=== PATIENT | female | born 1975 | race Caucasian/White ===

== ENCOUNTER → 2016-11-08 | Outpatient (REF) | payer OTHER ==
[~2016-11-08] MED LIST: OXYC-517 PO
== END ==
LOC: M SFHCCLAY 11:48
PROVIDERS: ATTEND Family Medicine
DX: R68.89 Other general symptoms and signs (principal)

== ENCOUNTER 2016-12-08 19:03 | Emergency (ER) | payer OTHER ==
[~2016-12-08] VITALS: Ht 160 cm; Wt 97.5 kg
[~2016-12-08 19:03] MED LIST changes: -ALEV220T22 PO; -ETOD500T PO; -MEDR4PAK PO; -NEXI40GR PO; -ZYRT10TA2 PO
[2016-12-08] MEDS ORDERED: ETOD500T PO (19:16)
[2016-12-08] MEDS ORDERED: NEXI40GR PO (19:16)
[2016-12-08] MEDS ORDERED: ALEV220T22 PO (19:16)
[2016-12-08] MEDS ORDERED: ZYRT10TA2 PO (19:16)
[2016-12-08] MEDS ORDERED: methylPREDNISolone INJ 125 MG/2 ML VIAL (J2930) IV ONE (20:00)
[2016-12-08] MEDS ORDERED: FAMOTIDINE IV BAG 20 MG in APPROPRIATE DILUENT 1 EA IV ONE (20:00)
[2016-12-08] MEDS ORDERED: diphenhydrAMINE INJ 50MG/ML VIAL (J1200) IV ONE (20:00)
[2016-12-08] MEDS ORDERED: ALBUTEROL SULFATE 2.5 MG/0.5 ML INH NEB SOLN NEB ONE (20:00)
[2016-12-08] MEDS ORDERED: MEDR4PAK PO (22:06)
[2016-12-08 22:11] VITALS: BP 109/71
== END 2016-12-08 22:13 | disposition home or self-care (01) ==
LOC: M ED 19:52
DX: T78.40XA Allergy, unspecified, initial encounter (principal); R10.824 Left lower quadrant rebound abdominal tenderness; Z90.49 Acquired absence of other specified parts of digestive tract; Z79.899 Other long term (current) drug therapy; Z88.1 Allergy status to other antibiotic agents; Z91.040 Latex allergy status
CPT/HCPCS: 36415; 76830; 76856; 80053; 85025; 93041; 93976; 94640; 94760; 96374; 96375; 99284; J1200; J2930

== ENCOUNTER → 2016-12-08 | Outpatient (CLI) | payer OTHER ==
[~2016-12-08] MED LIST changes: +ALEV220T22 PO; +ETOD500T PO; +MEDR4PAK PO; +NEXI40GR PO; +ZYRT10TA2 PO
--- NOTE | 2016-12-08 14:44 | REP ---
PELVIC ULTRASOUND: Real-time sonographic evaluation of the pelvis performed utilizing transabdominal and endovaginal technique. Bladder measures 8.5 x 3.8 x 7.1 cm. Uterus measures 8.0 x 3.9 x 5.7 cm. Endometrial stripe measures 13 mm with no endometrial fluid collection. Right ovary measures 2.7 x 2.1 x 1.8 cm and left ovary 3.4 x 2.3 x 2.3 cm. There is a dominant follicle in the left ovary 1.2 x 1.7 x 1.2 cm. There is no other evidence of adnexal mass. There is no free fluid. There is no evidence of ovarian torsion with blood flow seen in each ovary with duplex Doppler evaluation. IMPRESSION: Dominant follicle left ovary 1.7 cm in maximum diameter. No other evidence of adnexal mass. No free fluid or torsion. Signed by Jayy Cortez MD 12/08/2016 05:03 P
== END ==
LOC: M RAD 13:31
PROVIDERS: ATTEND Family Medicine
DX: N83.02 Follicular cyst of left ovary (principal)

== ENCOUNTER → 2016-12-08 | Outpatient (REF) | payer OTHER ==
[2016-12-08 20:04] LABS: ALBUMIN 4.2 GM/DL (3.2-5.2); ALBUMIN/GLOBULIN RATIO 1.11 (1.00-1.93); ALKALINE PHOSPHATASE 108 U/L (45-117); ALT/SGPT 31 U/L (12-78); ANION GAP 10 MEQ/L (8-16); AST/SGOT 16 U/L (15-37); BILIRUBIN,TOTAL 0.4 MG/DL (0.2-1.0); BLOOD UREA NITROGEN 21 MG/DL (7-18); CALCIUM LEVEL 8.4 MG/DL (8.5-10.1); CARBON DIOXIDE LEVEL 28 MEQ/L (21-32); CHLORIDE LEVEL 103 MEQ/L (98-107); CREATININE FOR GFR 0.77 MG/DL (0.55-1.02); GLOMERULAR FILTRATION RATE > 60.0 (>60); GLUCOSE, FASTING 91 MG/DL (70-105); SODIUM LEVEL 141 MEQ/L (136-145)
[2016-12-08 20:12] LABS: BASO % 0.6 % (0.0-1.0); EOS # 0.1 K/mm3 (0.0-0.50); EOS % 1.9 % (0.0-3.0); LARGE UNSTAINED CELL # 0.1 K/mm3 (0.0-0.4); LARGE UNSTAINED CELL % 1.6 % (0.0-4.0); LYMPH % 28.2 % (24.0-44.0); MEAN CORPUSCULAR HEMOGLOBIN 28.9 pg (27.0-33.0); MEAN CORPUSCULAR HGB CONC 33.5 g/dl (32.0-36.5); MEAN CORPUSCULAR VOLUME 86.2 fl (80.0-96.0); MONO # 0.3 K/mm3 (0.0-0.8); MONO % 3.9 % (0.0-5.0); NEUTROPHILS # 4.5 K/mm3 (1.8-7.7); NEUTROPHILS % 63.8 % (36.0-66.0); PLATELET COUNT, AUTOMATED 331 k/mm3 (150-450); RED CELL DISTRIBUTION WIDTH 12.1 % (11.5-14.5)
== END ==
LOC: M SFHCCLAY 11:52
PROVIDERS: ATTEND Family Medicine
DX: R10.824 Left lower quadrant rebound abdominal tenderness (principal)

== ENCOUNTER 2017-06-24 15:50 | Emergency (ER) | payer OTHER ==
[~2017-06-24] VITALS: Ht 160 cm; Wt 100.0 kg
[~2017-06-24 15:50] MED LIST changes: +ALEV220T22 PO; +ETOD500T PO; +MEDR4PAK PO; +NEXI40GR PO; +ZYRT10TA2 PO
[2017-06-24] MEDS ORDERED: CONC36TA4 (15:55)
[2017-06-24] MEDS: MORPHINE 4 MG/ML 1ML SYRINGE IV PRN ×2 (16:13→17:23)
[2017-06-24] MEDS ORDERED: ONDANSETRON 4MG/2ML VIAL (J2405) IV ONE (16:15)
[2017-06-24] MEDS ORDERED: NS 1,000 ML IV ONE (16:15)
[2017-06-24] MEDS ORDERED: KETOROLAC 30 MG/ML VIAL (J1885) IV ONE (16:15)
[2017-06-24 16:40] LABS: BASO % 0.3 % (0.0-1.0); EOS # 0.1 K/mm3 (0.0-0.50); EOS % 1.3 % (0.0-3.0); LARGE UNSTAINED CELL # 0.1 K/mm3 (0.0-0.4); LARGE UNSTAINED CELL % 0.9 % (0.0-4.0); LYMPH # 2.2 K/mm3 (1.5-4.5); LYMPH % 21.5 % (24.0-44.0); MEAN CORPUSCULAR HEMOGLOBIN 29.9 pg (27.0-33.0); MEAN CORPUSCULAR HGB CONC 35.2 g/dl (32.0-36.5); MEAN CORPUSCULAR VOLUME 85.1 fl (80.0-96.0); MONO # 0.4 K/mm3 (0.0-0.8); MONO % 3.6 % (0.0-5.0); NEUTROPHILS # 7.3 K/mm3 (1.8-7.7); NEUTROPHILS % 72.3 % (36.0-66.0); PLATELET COUNT, AUTOMATED 331 k/mm3 (150-450); RED CELL DISTRIBUTION WIDTH 12.2 % (11.5-14.5)
[2017-06-24 16:41] LABS: ALBUMIN 4.1 GM/DL (3.2-5.2); ALBUMIN/GLOBULIN RATIO 0.95 (1.00-1.93); ALKALINE PHOSPHATASE 104 U/L (45-117); ALT/SGPT 26 U/L (12-78); ANION GAP 6 MEQ/L (8-16); AST/SGOT 14 U/L (15-37); BILIRUBIN,DIRECT < 0.1 MG/DL (0.0-0.2); BILIRUBIN,TOTAL 0.4 MG/DL (0.2-1.0); BLOOD UREA NITROGEN 16 MG/DL (7-18); CALCIUM LEVEL 9.1 MG/DL (8.5-10.1); CARBON DIOXIDE LEVEL 28 MEQ/L (21-32); CHLORIDE LEVEL 106 MEQ/L (98-107); CREATININE FOR GFR 0.93 MG/DL (0.55-1.02); GLOMERULAR FILTRATION RATE > 60.0 (>60); GLUCOSE, FASTING 109 MG/DL (70-105); POTASSIUM SERUM 3.4 MEQ/L (3.5-5.1); SODIUM LEVEL 140 MEQ/L (136-145); TOTAL PROTEIN 8.4 GM/DL (6.4-8.2)
[2017-06-24] MEDS ORDERED: MORPHINE 4 MG/ML 1ML SYRINGE IV ONE (17:30)
[2017-06-24 17:51] VITALS: BP 160/85
[2017-06-24] MEDS ORDERED: PANTOPRAZOLE 40MG INJ (PROTONIX) (C9113) IV ONE (18:00)
[2017-06-24] MEDS ORDERED: FLOM5CAP PO (18:04)
[2017-06-24] MEDS ORDERED: NORCOTAB PO (18:04)
[2017-06-24] MEDS ORDERED: ZOFR4TAB3 PO (18:04)
[2017-06-24] MEDS ORDERED: ONDANSETRON 4 MG ORAL DISINTEGRATING TAB (S0181) PO ONE (18:15)
[2017-06-24] MEDS ORDERED: NORCO 5/325MG TABLET (BULK FOR ED) PO ONE (18:15)
[2017-06-24] MEDS ORDERED: TAMSULOSIN 0.4 MG CAP PO ONE (18:15)
--- NOTE | 2017-06-25 06:46 | REP ---
CT ABDOMEN AND PELVIS WITHOUT CONTRAST: CT abdomen and pelvis performed without oral or IV contrast. Sagittal and coronal reconstruction images are performed. The visualized lung bases demonstrate no evidence of acute infiltrate. The liver is grossly unremarkable. The patient appears to have had a cholecystectomy. The spleen, adrenals and pancreas are grossly unremarkable. There are approximately three or four tiny scattered right intrarenal calculi. There are approximately five scattered left intrarenal calculi. There is a 5 mm calculus in the proximal left ureter causing mild left hydronephrosis. The urinary bladder is collapsed. There is no abdominal aortic aneurysm. There is no adenopathy. There is no free air or free fluid. There is no bowel wall thickening. There is no evidence of a pelvic mass. IMPRESSION: There is a 5 mm calculus in the proximal left ureter causing mild left hydronephrosis. There are subcentimeter bilateral intrarenal calculi. Signed by Jayy Cortez MD 06/25/2017 05:25 P
--- NOTE | 2017-06-25 08:34 | ECGEPIP ---
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
== END 2017-06-24 18:25 | disposition home or self-care (01) ==
LOC: M ED 15:50
DX: N13.2 Hydronephrosis with renal and ureteral calculous obstruction (principal); Z79.899 Other long term (current) drug therapy; Z88.1 Allergy status to other antibiotic agents; Z91.040 Latex allergy status; Z87.442 Personal history of urinary calculi; Z98.890 Other specified postprocedural states
CPT/HCPCS: 74176; 80048; 80076; 81001; 83690; 85025; 93005; 96374; 96375; 96376; 99283; C9113; J1885; J2405

== ENCOUNTER → 2017-06-26 | Outpatient (REF) | payer OTHER ==
[~2017-06-26] MED LIST changes: +CONC36TA4; +FLOM5CAP PO; +NORCOTAB PO; +ZOFR4TAB3 PO
== END ==
LOC: M SFHCCAPE 10:59
PROVIDERS: ATTEND Physician Assistant
DX: N20.0 Calculus of kidney (principal)

== ENCOUNTER → 2017-08-21 | Outpatient (REF) | payer OTHER ==
[2017-08-21 19:41] LABS: BASO % 0.7 % (0.0-1.0); EOS # 0.1 10^3/uL (0.0-0.50); EOS % 1.2 % (0.0-3.0); IMMATURE GRANULOCYTE % 0.5 % (0-0); LYMPH # 2.2 10^3/uL (1.5-4.5); LYMPH % 36.5 % (24.0-44.0); MEAN CORPUSCULAR HEMOGLOBIN 28.8 pg (27.0-33.0); MEAN CORPUSCULAR HGB CONC 33.7 g/dl (32.0-36.5); MEAN CORPUSCULAR VOLUME 85.3 fl (80.0-96.0); MONO # 0.3 10^3/uL (0.0-0.8); MONO % 5.3 % (0.0-5.0); NEUTROPHILS # 3.4 10^3/uL (1.8-7.7); NEUTROPHILS % 55.8 % (36.0-66.0); PLATELET COUNT, AUTOMATED 333 10^3/uL (150-450); RED CELL DISTRIBUTION WIDTH 12.9 % (11.5-14.5); WHITE BLOOD COUNT 6.1 10^3/uL (4.0-10.0)
[2017-08-21 20:30] LABS: ALBUMIN 3.9 GM/DL (3.2-5.2); ALBUMIN/GLOBULIN RATIO 1.03 (1.00-1.93); ALKALINE PHOSPHATASE 93 U/L (45-117); ALT/SGPT 38 U/L (12-78); ANION GAP 8 MEQ/L (8-16); AST/SGOT 22 U/L (7-37); BILIRUBIN,TOTAL 0.5 MG/DL (0.2-1.0); BLOOD UREA NITROGEN 13 MG/DL (7-18); CALCIUM LEVEL 8.6 MG/DL (8.5-10.1); CARBON DIOXIDE LEVEL 28 MEQ/L (21-32); CHLORIDE LEVEL 105 MEQ/L (98-107); CHOLESTEROL LEVEL 156 MG/DL (<200); CREATININE FOR GFR 0.76 MG/DL (0.55-1.02); FREE T4 1.04 NG/DL (0.76-1.46); GLOMERULAR FILTRATION RATE > 60.0 (>60); GLUCOSE, FASTING 89 MG/DL (70-105); POTASSIUM SERUM 3.7 MEQ/L (3.5-5.1); SODIUM LEVEL 141 MEQ/L (136-145); TOTAL PROTEIN 7.7 GM/DL (6.4-8.2); TRIGLYCERIDES LEVEL 111 MG/DL (<150)
== END ==
LOC: M SFHCCAPE 08:40
PROVIDERS: ATTEND Physician Assistant
DX: E66.09 Other obesity due to excess calories (principal); Z68.37 Body mass index [BMI] 37.0-37.9, adult; F41.9 Anxiety disorder, unspecified

== ENCOUNTER → 2017-08-22 | Outpatient (REF) | payer OTHER | LOC: M SFHCCAPE 10:56 | PROVIDERS: ATTEND Physician Assistant | DX: R30.0 Dysuria (principal) ==

== ENCOUNTER 2017-10-05 14:17 | Emergency (ER) | payer OTHER ==
[2017-10-05] MEDS: ACETAMINOPHEN 325 MG TAB PO (15:38)
== END 2017-10-05 16:53 | disposition home or self-care (01) ==
LOC: M ED 14:17
DX: F07.81 Postconcussional syndrome (principal); W19.XXXA Unspecified fall, initial encounter; Y92.009 Unspecified place in unspecified non-institutional (private) residence as the place of occurrence of the external cause; Y93.89 Activity, other specified; Y99.8 Other external cause status; Z79.899 Other long term (current) drug therapy; Z88.1 Allergy status to other antibiotic agents; Z91.040 Latex allergy status
CPT/HCPCS: 70450

== ENCOUNTER 2017-10-09 12:34 | Emergency (ER) | payer OTHER ==
[2017-10-09] MEDS: NS 1,000 ML IV (15:55)
[2017-10-09] MEDS: diphenhydrAMINE INJ 50MG/ML VIAL (J1200) IV (15:55)
[2017-10-09] MEDS: KETOROLAC 30 MG/ML VIAL (J1885) IV (15:55)
[2017-10-09] MEDS: METOCLOPRAMIDE INJ 10MG/2ML VIAL (J2765) IV (15:56)
== END 2017-10-09 17:24 | disposition home or self-care (01) ==
LOC: M ED 12:34
DX: G44.309 Post-traumatic headache, unspecified, not intractable (principal); W00.9XXA Unspecified fall due to ice and snow, initial encounter; Y92.89 Other specified places as the place of occurrence of the external cause; Y93.89 Activity, other specified; Y99.8 Other external cause status; F33.9 Major depressive disorder, recurrent, unspecified; Z79.899 Other long term (current) drug therapy; Z88.1 Allergy status to other antibiotic agents; Z91.040 Latex allergy status; Z87.442 Personal history of urinary calculi
CPT/HCPCS: J1200

== ENCOUNTER 2017-10-25 20:22 | Emergency (ER) | payer OTHER | END 2017-10-25 22:37 | disposition left against medical advice (07) | LOC: M ED 20:22 | DX: Z53.21 Procedure and treatment not carried out due to patient leaving prior to being seen by health care provider (principal) ==

== ENCOUNTER → 2018-10-23 | Outpatient (REF) | payer OTHER ==
[~2018-10-23] MED LIST changes: +CYCL10TA PO; +FLOM0.4C39 PO; -FLOM5CAP PO; +IBUP80TA PO; +LIDO4CRE4 TOP; +PANT40TA3 PO; +TRAM50TA2 PO; +VYVA50CA4; +ZOFR4TAB14 PO; -ZOFR4TAB3 PO; +ZYRT10CA5 PO; -ZYRT10TA2 PO
[2018-10-23 18:20] LABS: AMORPHOUS SEDIMENT SMALL (NEGATIVE); APPEARANCE, URINE TURBID (CLEAR); BACTERIA, URINE AUTO 1+ (NEGATIVE); BILIRUBIN, URINE AUTO NEGATIVE (NEGATIVE); BLOOD, URINE BLOOD NEGATIVE (NEGATIVE); CALCIUM OXALATE CRYSTALS LARGE; COLOR, URINE AMBER (YELLOW); GLUCOSE, URINE (UA) AUTO NEGATIVE (NEGATIVE); KETONE, URINE AUTO NEGATIVE (NEGATIVE); LEUKOCYTE ESTERASE, URINE AUTO 2+ (NEGATIVE); MUCUS, URINE SMALL (NEGATIVE); NITRITE, URINE AUTO NEGATIVE (NEGATIVE); PROTEIN, URINE AUTO 1+ mg/dL (NEGATIVE); RBC, URINE AUTO 1 /HPF (0-3); SPECIFIC GRAVITY URINE AUTO 1.025 (1.002-1.035); SQUAMOUS EPITHELIAL CELL UR AU 11 /HPF (0-6); UROBILINOGEN, URINE AUTO 0.2 mg/dL (0.0-2.0); WBC, URINE AUTO 11 /HPF (0-3)
== END ==
LOC: M SFHCCAPE 10:47
PROVIDERS: ATTEND Physician Assistant
DX: N90.89 Other specified noninflammatory disorders of vulva and perineum (principal); R35.0 Frequency of micturition
CPT/HCPCS: 81001; 87086; 87255; G0463

== ENCOUNTER → 2018-11-05 | Outpatient (REF) | payer OTHER ==
[~2018-11-05] MED LIST changes: -IBUP80TA PO; -LIDO4CRE4 TOP; -VYVA50CA4
[2018-11-05 18:41] LABS: APPEARANCE, URINE CLEAR (CLEAR); BACTERIA, URINE AUTO NEGATIVE (NEGATIVE); BILIRUBIN, URINE AUTO NEGATIVE (NEGATIVE); BLOOD, URINE BLOOD 1+ (NEGATIVE); COLOR, URINE YELLOW (YELLOW); GLUCOSE, URINE (UA) AUTO NEGATIVE (NEGATIVE); KETONE, URINE AUTO NEGATIVE (NEGATIVE); LEUKOCYTE ESTERASE, URINE AUTO NEGATIVE (NEGATIVE); MUCUS, URINE SMALL (NEGATIVE); NITRITE, URINE AUTO NEGATIVE (NEGATIVE); PROTEIN, URINE AUTO NEGATIVE (NEGATIVE); RBC, URINE AUTO 1 /HPF (0-3); SPECIFIC GRAVITY URINE AUTO 1.024 (1.002-1.035); SQUAMOUS EPITHELIAL CELL UR AU 1 /HPF (0-6); UROBILINOGEN, URINE AUTO 0.2 mg/dL (0.0-2.0); WBC, URINE AUTO 1 /HPF (0-3)
== END ==
LOC: M SFHCCAPE 12:56
PROVIDERS: ATTEND Physician Assistant
DX: R10.9 Unspecified abdominal pain (principal)

== ENCOUNTER → 2018-11-05 | Outpatient (CLI) | payer OTHER ==
[~2018-11-05] MED LIST changes: +IBUP80TA PO; +LIDO4CRE4 TOP; +VYVA50CA4
[2018-11-05 13:59] LABS: BASO % 0.6 % (0.0-1.0); EOS # 0.2 10^3/uL (0.0-0.50); EOS % 3.3 % (0.0-3.0); HEMATOCRIT 41.7 % (36.0-47.0); HEMOGLOBIN 13.9 g/dl (12.0-15.5); LYMPH # 2.4 10^3/uL (1.5-4.5); LYMPH % 37.4 % (24.0-44.0); MEAN CORPUSCULAR HEMOGLOBIN 28.3 pg (27.0-33.0); MEAN CORPUSCULAR HGB CONC 33.3 g/dl (32.0-36.5); MEAN CORPUSCULAR VOLUME 84.9 fl (80.0-96.0); MONO # 0.4 10^3/uL (0.0-0.8); MONO % 5.9 % (0.0-5.0); NEUTROPHILS # 3.3 10^3/uL (1.8-7.7); NEUTROPHILS % 52.3 % (36.0-66.0); PLATELET COUNT, AUTOMATED 296 10^3/uL (150-450); RED BLOOD COUNT 4.91 10^6/uL (4.00-5.40); WHITE BLOOD COUNT 6.3 10^3/uL (4.0-10.0)
--- NOTE | 2018-11-05 14:03 | REP ---
CT abdomen pelvis without IV or oral contrast: Renal stone protocol. History: Right flank pain. Comparison study is from June 24, 2017. CT findings: Digital preliminary legal nurse consultant radiograph is unremarkable. Normal bowel gas pattern. The lung bases are clear on axial CT images. There is a tiny cyst in the left lobe of the liver. The liver and spleen are otherwise homogeneous in texture and normal in size. The gallbladder is not seen consistent with cholecystectomy. No pancreatic abnormality is seen. The adrenal glands are normal bilaterally. There is no evidence of hydronephrosis but there are multiple small intrarenal calculi. The largest of these measure up to 3 mm in diameter. There are several 3 mm calculi in each kidney. No hydronephrosis or ureteral calculus is seen. No bladder calculus is noted. The uterus is retroverted and retroflexed. No ovarian abnormality is seen. A vaginal tampon is noted. No abdominal wall defect is observed. A normal appendix is seen at the tip of the cecum in the right lower quadrant. Small and large bowel loops are unremarkable. No bony destructive lesion. There is osteoarthritic facet hypertrophy and sclerosis bilaterally at L5-S1. Impression: Bilateral intrarenal nephrolithiasis. No ureteral calculus seen. No hydronephrosis seen. Post cholecystectomy. Electronically Signed by Jac Faria MD 11/05/2018 08:38 P
[2018-11-05 14:23] LABS: ALBUMIN 3.6 GM/DL (3.2-5.2); ALT/SGPT 25 U/L (12-78); BILIRUBIN,TOTAL 0.2 MG/DL (0.2-1.0); BLOOD UREA NITROGEN 14 MG/DL (7-18); CALCIUM LEVEL 8.8 MG/DL (8.5-10.1); CARBON DIOXIDE LEVEL 28 MEQ/L (21-32); CHLORIDE LEVEL 104 MEQ/L (98-107); GLOMERULAR FILTRATION RATE > 60.0 (>58); GLUCOSE, FASTING 96 MG/DL (70-100); LIPASE 181 U/L (73-393); POTASSIUM SERUM 4.4 MEQ/L (3.5-5.1); SODIUM LEVEL 138 MEQ/L (136-145); TOTAL PROTEIN 7.2 GM/DL (6.4-8.2)
[2018-11-05 14:29] LABS: APPEARANCE, URINE CLEAR (CLEAR); BACTERIA, URINE AUTO NEGATIVE (NEGATIVE); BILIRUBIN, URINE AUTO NEGATIVE (NEGATIVE); BLOOD, URINE BLOOD NEGATIVE (NEGATIVE); COLOR, URINE STRAW (YELLOW); GLUCOSE, URINE (UA) AUTO NEGATIVE (NEGATIVE); KETONE, URINE AUTO NEGATIVE (NEGATIVE); LEUKOCYTE ESTERASE, URINE AUTO NEGATIVE (NEGATIVE); MUCUS, URINE SMALL (NEGATIVE); NITRITE, URINE AUTO NEGATIVE (NEGATIVE); PROTEIN, URINE AUTO NEGATIVE (NEGATIVE); RBC, URINE AUTO 1 /HPF (0-3); SPECIFIC GRAVITY URINE AUTO 1.008 (1.002-1.035); SQUAMOUS EPITHELIAL CELL UR AU 1 /HPF (0-6); UROBILINOGEN, URINE AUTO 0.2 mg/dL (0.0-2.0); WBC, URINE AUTO 1 /HPF (0-3)
== END ==
LOC: M RAD 12:20
PROVIDERS: ATTEND Physician Assistant
DX: N20.0 Calculus of kidney (principal)
CPT/HCPCS: 74176; 80053; 81001; 81002; 83690; 85025; 87086; G0463

== ENCOUNTER 2018-11-09 17:28 | Emergency (ER) | payer OTHER ==
[~2018-11-09] VITALS: Ht 160 cm; Wt 102.3 kg
[~2018-11-09 17:28] MED LIST changes: -IBUP80TA PO; -LIDO4CRE4 TOP; -VYVA50CA4
[2018-11-09] MEDS ORDERED: VYVA50CA4 (17:34)
[2018-11-09 18:41] LABS: BASO # 0.1 10^3/uL (0.0-0.2); BASO % 0.6 % (0.0-1.0); EOS # 0.4 10^3/uL (0.0-0.50); EOS % 4.2 % (0.0-3.0); HEMATOCRIT 46.6 % (36.0-47.0); HEMOGLOBIN 15.3 g/dl (12.0-15.5); LYMPH % 34.4 % (24.0-44.0); MEAN CORPUSCULAR HEMOGLOBIN 28.2 pg (27.0-33.0); MEAN CORPUSCULAR HGB CONC 32.8 g/dl (32.0-36.5); MEAN CORPUSCULAR VOLUME 85.8 fl (80.0-96.0); MONO # 0.4 10^3/uL (0.0-0.8); MONO % 4.9 % (0.0-5.0); NEUTROPHILS # 4.8 10^3/uL (1.8-7.7); NEUTROPHILS % 55.3 % (36.0-66.0); PLATELET COUNT, AUTOMATED 333 10^3/uL (150-450); RED BLOOD COUNT 5.43 10^6/uL (4.00-5.40); WHITE BLOOD COUNT 8.7 10^3/uL (4.0-10.0)
[2018-11-09 18:43] LABS: URINE PREG TEST NEGATIVE (NEGATIVE)
[2018-11-09 18:58] LABS: ALBUMIN 4.1 GM/DL (3.2-5.2); ALT/SGPT 34 U/L (12-78); BILIRUBIN,DIRECT < 0.1 MG/DL (0.0-0.2); BILIRUBIN,TOTAL 0.3 MG/DL (0.2-1.0); BLOOD UREA NITROGEN 13 MG/DL (7-18); CALCIUM LEVEL 8.7 MG/DL (8.5-10.1); CARBON DIOXIDE LEVEL 29 MEQ/L (21-32); CHLORIDE LEVEL 105 MEQ/L (98-107); CREATININE FOR GFR 0.78 MG/DL (0.55-1.30); GLOMERULAR FILTRATION RATE > 60.0 (>58); GLUCOSE, FASTING 85 MG/DL (70-100); LIPASE 234 U/L (73-393); SODIUM LEVEL 139 MEQ/L (136-145); TOTAL PROTEIN 7.8 GM/DL (6.4-8.2)
[2018-11-09] MEDS ORDERED: CYCL10TA PO (19:43)
[2018-11-09] MEDS ORDERED: LIDO4CRE4 TOP (19:43)
[2018-11-09] MEDS ORDERED: IBUP80TA PO (19:43)
[2018-11-09] MEDS ORDERED: IBUPROFEN 800 MG TAB PO ONE (19:45)
[2018-11-09] MEDS ORDERED: CYCLOBENZAPRINE 10 MG TAB PO ONE (19:45)
[2018-11-09] MEDS ORDERED: LIDOCAINE 5% (LIDODERM) PATCH TD ONE (19:45)
[2018-11-09 20:09] VITALS: BP 128/76
[2018-11-09] MEDS ORDERED: **NOTE PATIENT COMMENT** MISC XX SCH (21:00)
== END 2018-11-09 20:11 | disposition home or self-care (01) ==
LOC: M ED 17:28
DX: M54.9 Dorsalgia, unspecified (principal); G89.29 Other chronic pain; Z87.442 Personal history of urinary calculi; K21.9 Gastro-esophageal reflux disease without esophagitis; J30.9 Allergic rhinitis, unspecified; F41.9 Anxiety disorder, unspecified; F32.9 Major depressive disorder, single episode, unspecified; Z88.1 Allergy status to other antibiotic agents; Z91.040 Latex allergy status; Z79.899 Other long term (current) drug therapy

== ENCOUNTER → 2018-11-28 | Outpatient (CLI) | payer OTHER ==
[~2018-11-28] MED LIST changes: +IBUP80TA PO; +LIDO4CRE4 TOP; +VYVA50CA4
--- NOTE | 2018-11-28 10:45 | REP ---
Clinical: thoracic pain with recent fall . Technique: AP, lateral, and swimmers views. Findings: Alignment and kyphosis is maintained. Vertebral bodies intact. No acute fracture / compression injury or subluxation. No degenerative changes. Paravertebral soft tissues are normal. Impression: Normal thoracic spine series. Electronically Signed by Diego Hankins MD 11/28/2018 10:37 A
--- NOTE | 2018-11-28 10:49 | REP ---
Clinical: Pain with recent fall . Technique: AP, lateral, bilateral oblique, and coned-down views. Findings: There is no evidence for acute fracture / compression injury. Sagittal views best demonstrate chronic-appearing grade 1 anterolisthesis at the L5-S1 level of approximately 4.5 mm with findings to suggest chronic spondylolysis and associated hypertrophic facet changes with endplate sclerosis and minimal disc space narrowing. Remainder examination appears relatively normal for age. Impression: Chronic-appearing changes at L5-S1 as detailed above. No acute fracture / compression injury. Electronically Signed by Diego Hankins MD 11/28/2018 10:40 A
== END ==
LOC: M CLY 10:06
PROVIDERS: ATTEND Physician Assistant
DX: M51.37 Other intervertebral disc degeneration, lumbosacral region (principal); M54.41 Lumbago with sciatica, right side

== ENCOUNTER → 2018-12-09 | Outpatient (REF) | payer OTHER ==
[2018-12-09 14:49] LABS: APPEARANCE, URINE HAZY (CLEAR); BACTERIA, URINE AUTO 1+ (NEGATIVE); BILIRUBIN, URINE AUTO NEGATIVE (NEGATIVE); BLOOD, URINE BLOOD 1+ (NEGATIVE); COLOR, URINE YELLOW (YELLOW); GLUCOSE, URINE (UA) AUTO NEGATIVE (NEGATIVE); KETONE, URINE AUTO NEGATIVE (NEGATIVE); LEUKOCYTE ESTERASE, URINE AUTO TRACE (NEGATIVE); MUCUS, URINE SMALL (NEGATIVE); NITRITE, URINE AUTO POSITIVE (NEGATIVE); PROTEIN, URINE AUTO NEGATIVE (NEGATIVE); RBC, URINE AUTO 2 /HPF (0-3); SPECIFIC GRAVITY URINE AUTO 1.018 (1.002-1.035); SQUAMOUS EPITHELIAL CELL UR AU 3 /HPF (0-6); UROBILINOGEN, URINE AUTO 0.2 mg/dL (0.0-2.0); WBC, URINE AUTO 18 /HPF (0-3)
== END ==
LOC: M SMT 13:27
PROVIDERS: ATTEND Nurse Practitioner Family
DX: R35.0 Frequency of micturition (principal)

== ENCOUNTER → 2019-01-20 | Outpatient (REF) | payer OTHER ==
[~2019-01-20] MED LIST changes: +HYDR-3715 PO; -NORCOTAB PO
[2019-01-20 17:37] LABS: APPEARANCE, URINE HAZY (CLEAR); BACTERIA, URINE AUTO NEGATIVE (NEGATIVE); BILIRUBIN, URINE AUTO NEGATIVE (NEGATIVE); BLOOD, URINE BLOOD 2+ (NEGATIVE); CALCIUM OXALATE CRYSTALS LARGE; COLOR, URINE YELLOW (YELLOW); GLUCOSE, URINE (UA) AUTO NEGATIVE (NEGATIVE); KETONE, URINE AUTO NEGATIVE (NEGATIVE); LEUKOCYTE ESTERASE, URINE AUTO NEGATIVE (NEGATIVE); MUCUS, URINE SMALL (NEGATIVE); NITRITE, URINE AUTO NEGATIVE (NEGATIVE); PROTEIN, URINE AUTO NEGATIVE (NEGATIVE); RBC, URINE AUTO 4 /HPF (0-3); SPECIFIC GRAVITY URINE AUTO 1.024 (1.002-1.035); SQUAMOUS EPITHELIAL CELL UR AU 3 /HPF (0-6); UROBILINOGEN, URINE AUTO 0.2 mg/dL (0.0-2.0); WBC, URINE AUTO 1 /HPF (0-3)
== END ==
LOC: M LABSMT 08:43
PROVIDERS: ATTEND Nurse Practitioner Family
DX: R35.0 Frequency of micturition (principal); N20.0 Calculus of kidney

== ENCOUNTER → 2019-01-21 | Outpatient (REF) | payer OTHER ==
[2019-01-21 19:16] LABS: ALT/SGPT 28 U/L (12-78); BILIRUBIN,TOTAL 0.4 MG/DL (0.2-1.0); BLOOD UREA NITROGEN 16 MG/DL (7-18); CALCIUM LEVEL 8.5 MG/DL (8.5-10.1); CARBON DIOXIDE LEVEL 27 MEQ/L (21-32); CHLORIDE LEVEL 103 MEQ/L (98-107); CHOLESTEROL LEVEL 150 MG/DL (<200); CREATININE FOR GFR 0.85 MG/DL (0.55-1.30); GLOMERULAR FILTRATION RATE > 60.0 (>58); GLUCOSE, FASTING 86 MG/DL (70-100); HDL CHOLESTEROL 46 MG/DL (>40); POTASSIUM SERUM 3.4 MEQ/L (3.5-5.1); SODIUM LEVEL 140 MEQ/L (136-145); TRIGLYCERIDES LEVEL 180 MG/DL (<150)
[2019-01-21 19:17] LABS: ALBUMIN 3.8 GM/DL (3.2-5.2); BASO % 0.3 % (0.0-1.0); EOS % 0.3 % (0.0-3.0); HEMATOCRIT 43.8 % (36.0-47.0); HEMOGLOBIN 14.3 g/dl (12.0-15.5); LDL CHOLESTEROL 68 MG/DL (<100); LYMPH # 2.8 10^3/uL (1.5-4.5); LYMPH % 37.3 % (24.0-44.0); MEAN CORPUSCULAR HEMOGLOBIN 27.6 pg (27.0-33.0); MEAN CORPUSCULAR HGB CONC 32.6 g/dl (32.0-36.5); MEAN CORPUSCULAR VOLUME 84.6 fl (80.0-96.0); MONO # 0.4 10^3/uL (0.0-0.8); MONO % 5.1 % (0.0-5.0); NEUTROPHILS # 4.3 10^3/uL (1.8-7.7); NEUTROPHILS % 56.5 % (36.0-66.0); NON-HDL-C 104 MG/DL; PLATELET COUNT, AUTOMATED 340 10^3/uL (150-450); RED BLOOD COUNT 5.18 10^6/uL (4.00-5.40); THYROID STIMULATING HORMONE 0.966 uIU/ML (0.358-3.740); TOTAL 25(OH) VITAMIN D 19.6 NG/ML (30.0-100.0); TOTAL PROTEIN 7.7 GM/DL (6.4-8.2); WHITE BLOOD COUNT 7.6 10^3/uL (4.0-10.0)
== END ==
LOC: M LABDRWCV 16:37
PROVIDERS: ATTEND Physician Assistant
DX: Z13.6 Encounter for screening for cardiovascular disorders (principal); E55.9 Vitamin D deficiency, unspecified

== ENCOUNTER → 2019-01-21 | Outpatient (REF) | payer OTHER ==
[2019-01-21 19:02] LABS: BLOOD UREA NITROGEN 16 MG/DL (7-18); CALCIUM LEVEL 8.4 MG/DL (8.5-10.1); CARBON DIOXIDE LEVEL 27 MEQ/L (21-32); CHLORIDE LEVEL 103 MEQ/L (98-107); CREATININE FOR GFR 0.86 MG/DL (0.55-1.30); GLOMERULAR FILTRATION RATE > 60.0 (>58); GLUCOSE, FASTING 85 MG/DL (70-100); MAGNESIUM LEVEL 2.3 MG/DL (1.8-2.4); PHOSPHORUS LEVEL 3.6 MG/DL (2.5-4.9); POTASSIUM SERUM 3.4 MEQ/L (3.5-5.1); SODIUM LEVEL 140 MEQ/L (136-145); URIC ACID 4.1 MG/DL (2.6-6.0)
[2019-01-21 19:10] LABS: PTH INTACT 55.5 PG/ML (18.5-88.0)
== END ==
LOC: M LABDRWCV 16:39
PROVIDERS: ATTEND Nurse Practitioner Family
DX: Z13.6 Encounter for screening for cardiovascular disorders (principal); N20.0 Calculus of kidney

== ENCOUNTER → 2019-01-30 | Outpatient (REF) | payer OTHER | LOC: M SFHCCAPE 08:41 | PROVIDERS: ATTEND Physician Assistant | DX: E87.6 Hypokalemia (principal) ==

== ENCOUNTER 2019-02-02 00:18 | Emergency (ER) | payer OTHER ==
[~2019-02-02] VITALS: Ht 160 cm; Wt 102.3 kg
[2019-02-02] MEDS ORDERED: ONDANSETRON 4MG/2ML VIAL (J2405) IV ONE (00:45)
[2019-02-02] MEDS ORDERED: KETOROLAC 30 MG/ML VIAL (J1885) IV ONE (00:45)
[2019-02-02] MEDS ORDERED: NS 1,000 ML IV ONE (00:45)
[2019-02-02 01:17] LABS: BASO % 0.3 % (0.0-1.0); EOS # 0.2 10^3/uL (0.0-0.50); HEMATOCRIT 43.2 % (36.0-47.0); HEMOGLOBIN 14.6 g/dl (12.0-15.5); LYMPH # 3.3 10^3/uL (1.5-4.5); LYMPH % 31.4 % (24.0-44.0); MEAN CORPUSCULAR HEMOGLOBIN 28.6 pg (27.0-33.0); MEAN CORPUSCULAR HGB CONC 33.8 g/dl (32.0-36.5); MEAN CORPUSCULAR VOLUME 84.5 fl (80.0-96.0); MONO # 0.5 10^3/uL (0.0-0.8); MONO % 5.2 % (0.0-5.0); NEUTROPHILS # 6.3 10^3/uL (1.8-7.7); NEUTROPHILS % 60.5 % (36.0-66.0); PLATELET COUNT, AUTOMATED 300 10^3/uL (150-450); RED BLOOD COUNT 5.11 10^6/uL (4.00-5.40); WHITE BLOOD COUNT 10.4 10^3/uL (4.0-10.0)
[2019-02-02 01:37] LABS: HCG, SERUM QUALITATIVE NEGATIVE (NEGATIVE)
[2019-02-02 01:43] LABS: BLOOD UREA NITROGEN 15 MG/DL (7-18); CALCIUM LEVEL 8.7 MG/DL (8.5-10.1); CARBON DIOXIDE LEVEL 27 MEQ/L (21-32); CHLORIDE LEVEL 109 MEQ/L (98-107); CREATININE FOR GFR 0.86 MG/DL (0.55-1.30); GLOMERULAR FILTRATION RATE > 60.0 (>58); GLUCOSE, FASTING 111 MG/DL (70-100); POTASSIUM SERUM 4.1 MEQ/L (3.5-5.1); SODIUM LEVEL 142 MEQ/L (136-145)
[2019-02-02] MEDS ORDERED: FLOM0.4C39 PO (02:13)
[2019-02-02] MEDS ORDERED: TAMSULOSIN 0.4 MG CAP PO ONE (02:15)
--- NOTE | 2019-02-02 02:43 | REPVR ---
EXAM: CT Abdomen and Pelvis Without Contrast EXAM DATE/TIME: 02/02/19 (1:57am) CLINICAL HISTORY: 43 year old female with left flank pain / LLQ pain TECHNIQUE: Imaging protocol: Axial computed tomography images of the abdomen and pelvis without contrast. Coronal and sagittal reformatted images were created and reviewed. Radiation optimization: All CT scans at this facility use at least one of these dose optimization techniques: automated exposure control; mA and/or kV adjustment per patient size (includes targeted exams where dose is matched to clinical indication); or iterative reconstruction. COMPARISON: CT ABDOMEN PELVIS of 11/05/18 FINDINGS: ABDOMEN: Liver: Normal. No solid mass. Gallbladder and bile ducts: Probably previous cholecystectomy. No ductal dilatation. Pancreas: Normal. No ductal dilatation. Spleen: Normal. No splenomegaly. Adrenals: Normal. No mass. Kidneys and ureters: No hydronephrosis. Small bilateral non-obstructing intrarenal stones. Stomach and bowel: Normal. No bowel obstruction. No mucosal thickening. Appendix: No evidence of appendicitis. PELVIS: Bladder: Unremarkable as visualized. Reproductive: Left adnexal cystic mass (3.5-4 cm size). ABDOMEN and PELVIS: Intraperitoneal space: Normal. No free air. No significant fluid collection. Bones/joints: No acute fracture nor dislocation. Soft tissues: Unremarkable. Vasculature: Normal. No abdominal aortic aneurysm. Lymph nodes: Normal. No enlarged lymph nodes. IMPRESSION: No acute pathology. Most likely previous cholecystectomy. No hydronephrosis. Small bilateral non-obstructing intrarenal stones (also seen 3 months ago). Left adnexal cystic mass (3.5-4 cm size) (probable left ovarian or para-ovarian cyst). Non-emergent ultrasound can be obtained for further evaluation. Electronically signed by: Kya Hatch On 02/02/2019 02:43:01 AM
[2019-02-02 03:44] VITALS: BP 145/65
--- NOTE | 2019-02-03 15:03 | ED PDOC ---
Post-Departure Follow-Up mulu duong faxed formal report of ct abd/p for fu Nga Tran MD February 03, 2019 15:03
== END 2019-02-02 03:46 | disposition home or self-care (01) ==
LOC: M ED 00:18
DX: N83.202 Unspecified ovarian cyst, left side (principal); F33.9 Major depressive disorder, recurrent, unspecified; F41.9 Anxiety disorder, unspecified; Z79.899 Other long term (current) drug therapy; Z88.1 Allergy status to other antibiotic agents
CPT/HCPCS: 36415; 74176; 80048; 81001; 84703; 85025; 87086; 96361; 96374; 96375; 99284; J1885; J2405

== ENCOUNTER → 2019-05-26 | Outpatient (REF) | payer OTHER ==
[2019-05-26 17:41] LABS: APPEARANCE, URINE CLEAR (CLEAR); BACTERIA, URINE AUTO NEGATIVE (NEGATIVE); BILIRUBIN, URINE AUTO NEGATIVE (NEGATIVE); BLOOD, URINE BLOOD NEGATIVE (NEGATIVE); COLOR, URINE AMBER (YELLOW); GLUCOSE, URINE (UA) AUTO NEGATIVE (NEGATIVE); KETONE, URINE AUTO NEGATIVE (NEGATIVE); LEUKOCYTE ESTERASE, URINE AUTO NEGATIVE (NEGATIVE); MUCUS, URINE SMALL (NEGATIVE); NITRITE, URINE AUTO POSITIVE (NEGATIVE); PROTEIN, URINE AUTO NEGATIVE (NEGATIVE); RBC, URINE AUTO 1 /HPF (0-3); SPECIFIC GRAVITY URINE AUTO 1.019 (1.002-1.035); SQUAMOUS EPITHELIAL CELL UR AU 2 /HPF (0-6); WBC, URINE AUTO 1 /HPF (0-3)
== END ==
LOC: M SFHCCAPE 11:36
PROVIDERS: ATTEND Physician Assistant
DX: R30.0 Dysuria (principal)
CPT/HCPCS: 81001; 81002; 87086; G0463

== ENCOUNTER 2019-07-02 08:00 | Day surgery (SDC) | payer OTHER ==
[~2019-07-02] VITALS: Ht 160 cm; Wt 91.6 kg
[2019-07-02] VITALS (7 sets, daily range): BP systolic 118–132; BP diastolic 58–70
[~2019-07-02 08:00] MED LIST changes: +ALLE180T33 PO; +HYDR50TA70 PO; +LR 1,000 ML IV ONE; +VYVA40CA3 PO; +ceFAZolin SOD 2 GM in IV 1 EA IV ONE
[2019-07-02 08:25] LABS: HEMATOCRIT 45.7 % (36.0-47.0); HEMOGLOBIN 15.5 g/dl (12.0-15.5); MEAN CORPUSCULAR HEMOGLOBIN 29.2 pg (27.0-33.0); MEAN CORPUSCULAR HGB CONC 33.9 g/dl (32.0-36.5); MEAN CORPUSCULAR VOLUME 86.2 fl (80.0-96.0); PLATELET COUNT, AUTOMATED 287 10^3/uL (150-450); WHITE BLOOD COUNT 6.2 10^3/uL (4.0-10.0)
[2019-07-02] MEDS ORDERED: PROPOFOL 200 MG/20 ML VIAL As Ordered ONE (08:35)
[2019-07-02] MEDS ORDERED: LIDOCAINE 2% INJ 100 MG/5 ML SDV (FOR ANES.) As Ordered ONE (08:35)
[2019-07-02] MEDS ORDERED: ROCURONIUM BROMIDE 50 MG/5 ML VIAL As Ordered ONE (08:35)
[2019-07-02] MEDS ORDERED: ONDANSETRON 4MG/2ML VIAL (J2405) As Ordered ONE (08:36)
[2019-07-02] MEDS ORDERED: dexameTHASONE 4 MG/ML 1ML VIAL (J1100) As Ordered ONE (08:36)
[2019-07-02 08:52] LABS: BLOOD UREA NITROGEN 12 MG/DL (7-18); CALCIUM LEVEL 8.9 MG/DL (8.5-10.1); CARBON DIOXIDE LEVEL 30 MEQ/L (21-32); CHLORIDE LEVEL 103 MEQ/L (98-107); CREATININE FOR GFR 0.88 MG/DL (0.55-1.30); GLOMERULAR FILTRATION RATE > 60.0 (>58); GLUCOSE, FASTING 89 MG/DL (70-100); POTASSIUM SERUM 3.9 MEQ/L (3.5-5.1); SODIUM LEVEL 138 MEQ/L (136-145)
[2019-07-02] MEDS ORDERED: fentaNYL 250 MCG/5 ML INJECTION (J3010) As Ordered ONE (10:10)
[2019-07-02] MEDS ORDERED: BUPIVACAINE/EPIN 0.25% 30 ML VIAL As Ordered ONE (10:10)
[2019-07-02] MEDS ORDERED: MIDAZOLAM INJ 2 MG/2 ML VIAL (J2250) As Ordered ONE (10:10)
[2019-07-02] MEDS ORDERED: LACRILUBE (AKWA TEARS) OPHTH OINT 3.5 GM As Ordered ONE (10:45)
[2019-07-02] MEDS ORDERED: ACETAMINOPHEN 1000MG 100ML IV BTL (OFIRMEV) (J0131 PER 10MG) As Ordered ONE (10:45)
[2019-07-02] MEDS ORDERED: SUGAMMADEX SODIUM 500 MG/5 ML VIAL (BRIDION) As Ordered ONE (11:08)
[2019-07-02] MEDS ORDERED: PHENYLephrine HCL 500 MCG/5 ML (100MCG/ML) SYRINGE (J2370) As Ordered ONE (11:10)
[2019-07-02] MEDS ORDERED: ONDANSETRON 4MG/2ML VIAL (J2405) IV PRN ×2 (12:30→13:30)
[2019-07-02] MEDS ORDERED: PERCOCET 5MG/325MG TAB PO PRN ×2 (12:30)
[2019-07-02] MEDS ORDERED: IBUP80TA PO (12:31)
[2019-07-02] MEDS ORDERED: PERCOCET PO (12:31)
[2019-07-02] MEDS ORDERED: fentaNYL 100 MCG/2 ML INJECTION (J3010) As Ordered ONE (12:33)
[2019-07-02] MEDS ORDERED: oxyCODONE 5MG TAB As Ordered ONE ×2 (12:41→13:04)
[2019-07-02] MEDS: LR 1,000 ML IV SCH ×2 (13:25→23:59)
[2019-07-02] MEDS ORDERED: fentaNYL 100 MCG/2 ML INJECTION (J3010) IV PRN (13:30)
[2019-07-02] MEDS ORDERED: LR 1,000 ML IV SCH (13:30)
[2019-07-02] MEDS ORDERED: oxyCODONE 5MG TAB PO PRN (13:30)
--- NOTE | 2019-07-02 13:40 | RO ---
DATE OF PROCEDURE: 07/02/2019 Carmen is a 43-year-old female with extensive history of pelvic pain and menometrorrhagia. After extensive counseling in the office, a decision was made to proceed with a robotic-assisted total hysterectomy, removal of both tubes and cystoscopy. PREOPERATIVE DIAGNOSES: 1. Pelvic pain. 2. Menometrorrhagia. POSTOPERATIVE DIAGNOSES: 1. Pelvic pain. 2. Menometrorrhagia. 3. Right ovarian cyst. PROCEDURE: 1. Robotic-assisted total hysterectomy. 2. Removal of both tubes. 3. Right ovarian cystectomy. 4. Cystoscopy. SURGEON: Dr. Pineda Garner EMPLOYMENT AND CLAIMS AIDE: ANESTHESIA: General. COMPLICATIONS: ESTIMATED BLOOD LOSS: Less than 50 mL. FINDINGS: Enlarged uterus with a right ovarian cyst that appeared to be simple. On cystoscopy, bilateral ureteral jets were noted. No evidence of any bladder injury noted. DESCRIPTION OF PROCEDURE: After visiting with the patient in the holding area and reaffirming informed consent, she was then taken to the operating room where general anesthetic was found to be adequate. She was then draped and prepped in the usual sterile fashion in the dorsal lithotomy position. At this point, a Britton catheter was placed in the bladder for drainage. We then placed a HUMI II uterine manipulator. Attention was then turned to the abdomen where the abdomen was insufflated with CO2 gas via a Veress needle. Then, an 8 mm supraumbilical incision was made. An 8 mm trocar as well as the laparoscope was inserted under direct visualization. Then, two left 8 mm lateral ports were placed and one right 8 mm lateral port placed under direct visualization for robotic arm 1, 2 and an assist port. At this point, the patient was then placed in steep Trendelenburg. The robot was brought to the patient's right side and docked in the usual fashion. Proper targeting of the instruments were done. After the targeting was passed, we then docked all the arms and introduced the vessel sealer in arm one and a bipolar grasper in arm two. I then unscrubbed and went to the surgeon console and began the surgery. The pelvis and abdomen was inspected with the above-noted findings. At this point, the left fallopian tube was held in tension. The mesosalpinx was transected using the vessel sealer all way down to the utero-ovarian ligament. The utero-ovarian ligament was cauterized and cut using the vessel sealer. The round ligament was cauterized and cut in a similar fashion. The anterior leaflet of the broad ligament was dissected to create a bladder flap. The uterine arteries were then cauterized and cut. The opposite side was done in a similar fashion. A right ovarian cyst was noted. Using the vessel sealer, after cyst was ruptured, the cyst wall was then removed. The cyst appeared to be approximately 5-6 cm in size. The cyst was removed and sent to pathology. Good hemostasis noted. That side was taken all the way down to the uterine artery. Again, the anterior leaflet of the broad ligament was completed dissected to complete the bladder flap. The bladder was pushed out of the operative field. At this point, the vessel sealer was removed and Endo shear was placed. Anterior and posterior colpotomy was performed and the uterus, both tubes as well as the right ovarian cyst wall was removed through the vagina. A moistened sponge lap was placed the vagina to maintain pneumoperitoneum and the vaginal cuff was then closed using #2-0 V-Loc suture in a running fashion. The peritoneum over the vaginal cuff was also closed. At this point, the pelvis was copiously irrigated with normal saline. Good hemostasis noted. No evidence of any injuries noted. One mL of Furacin was given by the anesthesiologist to assist in the cystoscopy. I then rescrubbed and went to the patient's side, retrograde filled the bladder with 230 mL of normal saline. A cystoscopy was performed. Bilateral ureteral jets were noted. No evidence of any bladder injury noted. The cystoscope was then removed. Britton catheter placed back in the bladder for drainage. I then turned my attention to the abdomen where the robot was undocked and the trocars removed. The robotic ports were then closed using #4-0 Vicryl in subcuticular fashion. 0.25% Marcaine was placed for postoperative pain. Dermabond placed. The patient tolerated the procedure well. She was then transferred to recovery room in stable condition.
[2019-07-02] MEDS: DOCUSATE SODIUM 100 MG CAP PO SCH ×2 (14:48→20:19)
[2019-07-02] MEDS: IBUPROFEN 800 MG TAB PO SCH (20:19)
[2019-07-03] VITALS: BP 108/55
[2019-07-03] MEDS: SIMETHICONE 80 MG CHEW TAB PO PRN ×2 (00:05→08:41)
[2019-07-03 04:00] VITALS: BP 122/58
[2019-07-03] MEDS: IBUPROFEN 800 MG TAB PO SCH (04:33)
[2019-07-03 08:00] VITALS: BP 118/67
[2019-07-03] MEDS: DOCUSATE SODIUM 100 MG CAP PO SCH (08:41)
[2019-07-03] MEDS ORDERED: IBUPROFEN 800 MG TAB PO SCH (15:00)
== END 2019-07-03 09:50 | disposition home or self-care (01) ==
LOC: M SDC 08:00 → M PED 13:25 → M SDC 07-03 09:50
PROVIDERS: ATTEND Obstetrics & Gynecology
DX: R10.2 Pelvic and perineal pain (principal); N83.11 Corpus luteum cyst of right ovary; N92.1 Excessive and frequent menstruation with irregular cycle; N72 Inflammatory disease of cervix uteri; N80.0 Endometriosis of uterus; M32.9 Systemic lupus erythematosus, unspecified; I10 Essential (primary) hypertension; K21.9 Gastro-esophageal reflux disease without esophagitis; F90.9 Attention-deficit hyperactivity disorder, unspecified type; F32.9 Major depressive disorder, single episode, unspecified; F41.9 Anxiety disorder, unspecified; Z91.040 Latex allergy status; Z88.1 Allergy status to other antibiotic agents; Z91.010 Allergy to peanuts; Z79.899 Other long term (current) drug therapy
CPT/HCPCS: 36415; 58571; 58662; 80048; 85027; 86850; 86900; 86901; 88305; 88307; 96360; 96361; J0131; J0690; J1100; J2250; J2370; J2405; J3010

== ENCOUNTER → 2019-07-24 | Outpatient (REF) | payer OTHER ==
[~2019-07-24] MED LIST changes: -LR 1,000 ML IV ONE; +PERCOCET PO; -ceFAZolin SOD 2 GM in IV 1 EA IV ONE
[2019-07-24 16:45] LABS: BASO % 0.5 % (0.0-1.0); EOS # 0.2 10^3/uL (0.0-0.5); EOS % 1.8 % (0.0-3.0); HEMATOCRIT 44.2 % (36.0-47.0); HEMOGLOBIN 14.6 g/dl (12.0-15.5); LYMPH # 2.4 10^3/uL (1.5-5.0); LYMPH % 28.4 % (24.0-44.0); MEAN CORPUSCULAR HEMOGLOBIN 28.3 pg (27.0-33.0); MEAN CORPUSCULAR VOLUME 85.8 fl (80.0-96.0); MONO # 0.4 10^3/uL (0.0-0.8); MONO % 5.2 % (0.0-5.0); NEUTROPHILS # 5.4 10^3/uL (1.5-8.5); NEUTROPHILS % 63.6 % (36.0-66.0); PLATELET COUNT, AUTOMATED 347 10^3/uL (150-450); RED BLOOD COUNT 5.15 10^6/uL (4.00-5.40); WHITE BLOOD COUNT 8.4 10^3/uL (4.0-10.0)
[2019-07-24 16:57] LABS: ALBUMIN 3.7 GM/DL (3.2-5.2); ALT/SGPT 21 U/L (12-78); BILIRUBIN,TOTAL 0.6 MG/DL (0.2-1.0); BLOOD UREA NITROGEN 15 MG/DL (7-18); C REACTIVE PROTEIN QUANTITATIV 0.69 MG/DL (0.00-0.30); CALCIUM LEVEL 9.1 MG/DL (8.5-10.1); CARBON DIOXIDE LEVEL 29 MEQ/L (21-32); CHLORIDE LEVEL 102 MEQ/L (98-107); CHOLESTEROL LEVEL 161 MG/DL (<200); CHOLESTEROL RISK RATIO 2.683 (<5); COMPLEMENT C3 165 MG/DL (90-180); COMPLEMENT C4 31 MG/DL (10-40); CREATININE FOR GFR 0.88 MG/DL (0.55-1.30); GLOMERULAR FILTRATION RATE > 60.0 (>58); GLUCOSE, FASTING 90 MG/DL (70-100); HDL CHOLESTEROL 60 MG/DL (>40); LDL CHOLESTEROL 75 MG/DL (<100); NON-HDL-C 101 MG/DL; POTASSIUM SERUM 3.9 MEQ/L (3.5-5.1); RHEUMATOID FACTOR QUANT < 10.0 IU/ML (<15.0); SODIUM LEVEL 138 MEQ/L (136-145); THYROID STIMULATING HORMONE 0.926 uIU/ML (0.358-3.740); TOTAL PROTEIN 7.9 GM/DL (6.4-8.2); TRIGLYCERIDES LEVEL 131 MG/DL (<150)
[2019-07-24 17:03] LABS: HEMOGLOBIN A1c 5.4 %
[2019-07-24 17:08] LABS: ERYTHROCYTE SEDIMENTATION RATE 14 mm/hr (0-20)
[2019-07-30 14:07] LABS: ANA (HEP2) Negative (.); ANTI DS-DNA AB <1:10 titer (.); CYCLIC CITRULLINATED PEPTIDE 12 units (0-19); RNP ANTIBODY < 0.2 AI (0.0-0.9); SMITHS ANTIBODY < 0.2 AI (0.0-0.9); SSA SJOGRENS A <0.2 AI (0.0-0.9); SSB SJOGRENS B <0.2 AI (0.0-0.9)
== END ==
LOC: M SFHCCAPE 07:43
PROVIDERS: ATTEND Internal Medicine Rheumatology
DX: Z00.00 Encounter for general adult medical examination without abnormal findings (principal); M35.1 Other overlap syndromes; M06.9 Rheumatoid arthritis, unspecified; R73.09 Other abnormal glucose; E78.1 Pure hyperglyceridemia; E55.9 Vitamin D deficiency, unspecified

== ENCOUNTER → 2019-08-13 | Outpatient (CLI) | payer OTHER ==
--- NOTE | 2019-08-14 04:05 | REP ---
Clinical: Renal calculus. Technique: Real time verma scale and color evaluation using curved array transducer. Findings: Bladder is normal in appearance and without wall thickening or mass lesion. Bilateral ureteral jets visualized during examination. Prevoid bladder measures 11.7 x 7.9 x 6.1 cm (370 ml). Postvoid bladder measures 1.9 x 2.6 x 1.0 cm (3 ml). Postvoid residual equals 1%. Impression: Normal bladder ultrasound. Electronically Signed by Diego Haknins MD 08/14/2019 03:56 A
--- NOTE | 2019-08-15 06:46 | REP ---
Clinical: Nephrolithiasis. Technique: Real time verma scale and color ultrasound examination of the kidneys using curved array transducer. Findings: Bilateral kidneys are normal in contour, size and echogenicity without hydronephrosis, cystic or renal mass lesion. Few bilateral punctate nephroliths are suggested. Right kidney measures 12.0 x 5.5 x 4.8 cm; left kidney measures 11.9 x 4.8 x 4.6 cm. Bladder is normal in appearance and without wall thickening or mass lesion. Bilateral ureteral jets are visualized. Prevoid bladder measures 11.7 x 7.39 c 6.1 cm (370 cc); post void bladder measures 1.9 x 2.6 x 1.0 cm (3.0 cc). Post void residual equals 1% Impression: Small bilateral nephroliths suggested. Electronically Signed by Diego Hankins MD 08/15/2019 06:38 A
== END ==
LOC: M RAD 09:38
PROVIDERS: ATTEND Nurse Practitioner Family
DX: N20.0 Calculus of kidney (principal)

== ENCOUNTER 2019-09-12 11:47 | Emergency (ER) | payer OTHER ==
[~2019-09-12] VITALS: Ht 160 cm; Wt 95.0 kg
[2019-09-12 12:54] LABS: BASO % 0.3 % (0.0-1.0); EOS # 0.1 10^3/uL (0.0-0.5); EOS % 0.9 % (0.0-3.0); HEMATOCRIT 45.2 % (36.0-47.0); HEMOGLOBIN 15.1 g/dl (12.0-15.5); LYMPH # 2.1 10^3/uL (1.5-5.0); MEAN CORPUSCULAR HEMOGLOBIN 28.6 pg (27.0-33.0); MEAN CORPUSCULAR HGB CONC 33.4 g/dl (32.0-36.5); MEAN CORPUSCULAR VOLUME 85.6 fl (80.0-96.0); MONO # 0.4 10^3/uL (0.0-0.8); MONO % 5.4 % (0.0-5.0); NEUTROPHILS # 4.3 10^3/uL (1.5-8.5); NEUTROPHILS % 62.8 % (36.0-66.0); PLATELET COUNT, AUTOMATED 315 10^3/uL (150-450); RED BLOOD COUNT 5.28 10^6/uL (4.00-5.40); WHITE BLOOD COUNT 6.8 10^3/uL (4.0-10.0)
[2019-09-12 13:26] LABS: BLOOD UREA NITROGEN 14 MG/DL (7-18); CALCIUM LEVEL 9.3 MG/DL (8.5-10.1); CARBON DIOXIDE LEVEL 26 MEQ/L (21-32); CHLORIDE LEVEL 104 MEQ/L (98-107); CK-MB VALUE MASS < 1.0 NG/ML (<3.6); CPK CREATINE PHOSPHOKINASE 98 U/L (26-192); CREATININE FOR GFR 0.88 MG/DL (0.55-1.30); GLOMERULAR FILTRATION RATE > 60.0 (>58); GLUCOSE, FASTING 101 MG/DL (70-100); MB/CK RELATIVE INDEX 1.02 (< OR =4); SODIUM LEVEL 139 MEQ/L (136-145); TROPONIN I < 0.02 NG/ML (< 0.10)
[2019-09-12] MEDS ORDERED: ISOVUE-370 76% 100ML VIAL (Q9967) As Ordered ONE (13:38)
--- NOTE | 2019-09-12 14:18 | REP ---
CT pulmonary angiogram: With IV contrast. History: Chest pain Comparison studies: No comparison chest CT. Contrast dose: 75 ML of Isovue [address] technique: Helical scanning is acquired and overlapping 1.5 mm and contiguous 3 mm axial images are reformatted. In addition, maximum intensity projection and multiplanar re-formation images are generated in sagittal and coronal imaging projections. CT pulmonary angiographic findings: There is good opacification in the pulmonary arterial tree. No filling defect or vessel cutoff is seen to suggest pulmonary embolus. There is no evidence of aortic aneurysm or dissection. No pleural or pericardial effusion is apparent. A the lung sultana show no evidence of infiltrate. No pulmonary nodule or mass lesion is seen. No adrenal lesion is seen. The visualized upper abdominal structures are unremarkable. No hilar or mediastinal mass or adenopathy is seen. Bone window settings show no significant bony abnormality. Impression: No CT evidence of pulmonary embolus. No active disease. Electronically Signed by Jac Faria MD 09/12/2019 02:08 P
--- NOTE | 2019-09-12 14:32 | REP ---
CHEST X-RAY: Single view. HISTORY: Chest pain. COMPARISON CHEST X-RAY: April 09, 2013. FINDINGS: The lungs are well inflated and clear. The pleural angles are sharp. Heart size is normal. No significant bony abnormality is seen. IMPRESSION: No active disease. Electronically Signed by Jac Faria MD 09/12/2019 05:03 P
--- NOTE | 2019-09-12 14:43 | REP ---
Head CT without contrast: History: Paresthesias. Comparison study: October 05, 2017. CT findings: Bone window settings demonstrate an intact bony calvarium. There is no evidence of skull fracture or incidental bony calvarial lesion. The visualized paranasal sinuses appear clear. No intraorbital abnormality is seen. On soft tissue window setting images; the lateral, third, and fourth ventricles are normal in size and position. Cortez-white differentiation pattern is normal above and below the tentorium. There are is no evidence of intracranial hemorrhage. No mass, edema, infarction, or midline shift is seen. No extra-axial fluid collection is appreciated. Impression: Negative noncontrast head CT. Electronically Signed by Jac Faria MD 09/12/2019 02:35 P
[2019-09-12] MEDS ORDERED: KETO10TAB PO (15:14)
[2019-09-12] MEDS ORDERED: KETOROLAC 30 MG/ML VIAL (J1885) IV ONE (15:30)
[2019-09-12 15:56] VITALS: BP 129/68
--- NOTE | 2019-09-12 20:17 | ECGEPIP ---
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
== END 2019-09-12 15:59 | disposition home or self-care (01) ==
LOC: M ED 11:47
DX: R07.89 Other chest pain (principal); F33.9 Major depressive disorder, recurrent, unspecified; F41.9 Anxiety disorder, unspecified; Z79.899 Other long term (current) drug therapy; Z88.1 Allergy status to other antibiotic agents; Z91.018 Allergy to other foods; Z91.040 Latex allergy status
CPT/HCPCS: 36415; 70450; 71045; 71275; 80048; 82550; 82553; 84484; 85025; 93005; 93041; 96374; 99284; J1885; Q9967

== ENCOUNTER → 2019-09-25 | Outpatient (CLI) | payer OTHER ==
[~2019-09-25] MED LIST changes: +KETO10TAB PO
--- NOTE | 2019-09-25 10:43 | REP ---
Clinical: bronchitis. Comparison: 09/12/2019. Technique: PA and lateral. Findings: The mediastinum and cardiac silhouette are normal. The lung sultana are clear and without acute consolidation, effusion, or pneumothorax. The skeletal structures are intact and normal. Impression: 1. No acute cardiopulmonary process. Electronically Signed by Diego Hankins MD 09/25/2019 10:35 A
== END ==
LOC: M CLY 10:22
PROVIDERS: ATTEND Physician Assistant
DX: J40 Bronchitis, not specified as acute or chronic (principal)
CPT/HCPCS: 71046; G0463

== ENCOUNTER → 2020-01-21 | Outpatient (REF) | payer OTHER ==
[~2020-01-21] MED LIST changes: +CYCL-707 PO; -CYCL10TA PO
== END ==
LOC: M LAB REF 17:14
PROVIDERS: ATTEND Dermatology
DX: L85.9 Epidermal thickening, unspecified (principal)
CPT/HCPCS: 11102; 11900; 88305; G0463; J3301

== ENCOUNTER → 2020-01-27 | Outpatient (REF) | payer OTHER ==
[2020-01-27 17:48] LABS: APPEARANCE, URINE CLEAR (CLEAR); BACTERIA, URINE AUTO NEGATIVE (NEGATIVE); BILIRUBIN, URINE AUTO NEGATIVE (NEGATIVE); BLOOD, URINE BLOOD NEGATIVE (NEGATIVE); COLOR, URINE STRAW (YELLOW); GLUCOSE, URINE (UA) AUTO NEGATIVE (NEGATIVE); KETONE, URINE AUTO NEGATIVE (NEGATIVE); LEUKOCYTE ESTERASE, URINE AUTO NEGATIVE (NEGATIVE); MUCUS, URINE SMALL (NEGATIVE); NITRITE, URINE AUTO NEGATIVE (NEGATIVE); PROTEIN, URINE AUTO NEGATIVE (NEGATIVE); RBC, URINE AUTO 0 /HPF (0-3); SPECIFIC GRAVITY URINE AUTO 1.009 (1.002-1.035); SQUAMOUS EPITHELIAL CELL UR AU 2 /HPF (0-6); UROBILINOGEN, URINE AUTO 0.2 mg/dL (0.0-2.0); WBC, URINE AUTO 1 /HPF (0-3)
[2020-01-27 19:24] LABS: CHLAMYDIA DNA AMPLIFICATION NEGATIVE (NEGATIVE); GC DNA AMPLIFICATION NEGATIVE (NEGATIVE)
== END ==
LOC: M SFHCCLAY 11:59
PROVIDERS: ATTEND Physician Assistant
DX: R35.0 Frequency of micturition (principal)
CPT/HCPCS: 81001; 81002; 87086; 87661; G0463

== ENCOUNTER 2020-03-03 09:18 | Inpatient (IN) | payer OTHER ==
[~2020-03-03] VITALS: Ht 160 cm; Wt 101.8 kg
[2020-03-03 10:15] LABS: HEMOGLOBIN 15.3 g/dl (12.0-15.5); MEAN CORPUSCULAR HEMOGLOBIN 29.6 pg (27.0-33.0); MEAN CORPUSCULAR HGB CONC 34.8 g/dl (32.0-36.5); MEAN CORPUSCULAR VOLUME 85.1 fl (80.0-96.0); PLATELET COUNT, AUTOMATED 263 10^3/uL (150-450); RED BLOOD COUNT 5.17 10^6/uL (4.00-5.40); WHITE BLOOD COUNT 5.4 10^3/uL (4.0-10.0)
[2020-03-03] MEDS ORDERED: DOXE25CA PO (10:35)
[2020-03-03 10:39] LABS: HCG, SERUM QUALITATIVE NEGATIVE (NEGATIVE)
[2020-03-03 10:46] LABS: ACETAMINOPHEN LEVEL < 2.0 UG/ML (10.0-30.0); ALBUMIN 3.7 GM/DL (3.2-5.2); ALT/SGPT 26 U/L (12-78); BILIRUBIN,DIRECT 0.2 MG/DL (0.0-0.2); BILIRUBIN,TOTAL 0.7 MG/DL (0.2-1.0); BLOOD UREA NITROGEN 11 MG/DL (7-18); CALCIUM LEVEL 8.6 MG/DL (8.5-10.1); CARBON DIOXIDE LEVEL 29 MEQ/L (21-32); CHLORIDE LEVEL 105 MEQ/L (98-107); CREATININE FOR GFR 0.78 MG/DL (0.55-1.30); ETHYL ALCOHOL (ETHANOL) < 0.003 % (0.000-0.010); GLOMERULAR FILTRATION RATE > 60.0 (>58); GLUCOSE, FASTING 96 MG/DL (70-100); POTASSIUM SERUM 3.9 MEQ/L (3.5-5.1); SALICYLATE LEVEL < 1.7 MG/DL (5.0-30.0); SODIUM LEVEL 139 MEQ/L (136-145); THYROID STIMULATING HORMONE 0.396 uIU/ML (0.358-3.740); TOTAL PROTEIN 7.3 GM/DL (6.4-8.2)
[2020-03-03 10:50] LABS: AMPHETAMINES LEVEL URINE POSITIVE (NEGATIVE); BARBITURATES URINE NEGATIVE (NEGATIVE); BENZODIAZEPINES URINE NEGATIVE (NEGATIVE); CANNABINOIDS URINE NEGATIVE (NEGATIVE); COCAINE METABOLITE URINE NEGATIVE (NEGATIVE); METHADONE URINE NEGATIVE (NEGATIVE); OPIATES URINE NEGATIVE (NEGATIVE); PHENCYCLIDINE URINE NEGATIVE (NEGATIVE)
[2020-03-03] MEDS ORDERED: LORazepam 1 MG TAB PO STA (10:55)
[2020-03-03] MEDS ORDERED: GNP1000T11 PO (13:31)
[2020-03-03] MEDS ORDERED: CALC1WAF2 PO (13:31)
[2020-03-03] MEDS ORDERED: METF500T13 PO (13:31)
[2020-03-03] MEDS ORDERED: VITA50005 PO (13:31)
[2020-03-03] MEDS ORDERED: VYVA40CA3 PO (13:31)
[2020-03-03] MEDS ORDERED: HYDR50TA70 PO (13:31)
[2020-03-03] MEDS ORDERED: PROBCAP14 PO (13:31)
[2020-03-03] MEDS ORDERED: PANT-23 PO (13:31)
[2020-03-03] MEDS ORDERED: MAALOX 30 ML SUSP *UDC PO PRN (15:15)
[2020-03-03] MEDS ORDERED: traZODone 50 MG TAB PO PRN (15:15)
[2020-03-03] MEDS ORDERED: ACETAMINOPHEN TAB 650MG DOSE (2X325MG) PO PRN (15:15)
[2020-03-03] MEDS ORDERED: MOM 30ML SUSPENSION UDC PO PRN (15:15)
[2020-03-03] MEDS ORDERED: hydrOXYzine 50 MG TAB PO PRN (16:15)
[2020-03-03] MEDS ORDERED: PANTOPRAZOLE 40MG TAB (PROTONIX) PO PRN (16:15)
[2020-03-03] MEDS: metFORMIN (GLUCOPHAGE) 500 MG TAB PO SCH (18:00)
[2020-03-03 18:51] VITALS: BP 139/82
[2020-03-03] MEDS: DOXEPIN 25 MG CAP PO SCH (20:35)
[2020-03-03] MEDS: LACTOBACILLUS ACIDOPHILUS CAP (BACID) PO SCH (20:35)
[2020-03-04 06:35] VITALS: BP 136/68
[2020-03-04] MEDS: LACTOBACILLUS ACIDOPHILUS CAP (BACID) PO SCH (08:26)
[2020-03-04] MEDS: CALCIUM/VITAMIN D 500 MG TAB PO SCH (08:26)
[2020-03-04] MEDS: metFORMIN (GLUCOPHAGE) 500 MG TAB PO SCH ×2 (08:26→17:14)
--- NOTE | 2020-03-04 09:29 | MHHPEPDOC ---
[facility] History & Physical History and Physical DATE OF ADMISSION: Mar 03, 2020 at 15:02 LEGAL STATUS AT ADMISSION: . CHIEF COMPLAINT: . HISTORY OF PRESENT ILLNESS: Patient is a 44-year-old female, who PSYCHIATRIC REVIEW OF SYSTEMS: Affective: . Anxiety: . Trauma: . Psychosis: . Personality: . PAST PSYCHIATRIC HISTORY: Prior Psychiatric Disorder: . Outpatient Treatment: . Suicidal/Self injurious: [Denies]. Psychotropic Medication History: . ALLERGIES: Please see below. FAMILY PSYCHIATRIC HISTORY: [Denies]. SOCIAL HISTORY: Early Relations/development: . Sibling order: . Paternal relationships: . Education: . Occupational: . Legal: . Marital: . Economic: . Supports: . Abuse/trauma: . SUBSTANCE ABUSE HISTORY: . PAST MEDICAL/SURGICAL HISTORY: [None]. VITAL SIGNS: Please see below. MENTAL STATUS EXAMINATION: General appearance: Patient is a -year old female, who is . Speech: . Thought processes: . Thought content: . Abstract reasoning and computation: . Description of associations: . Description of abnormal or psychotic thoughts: . Judgment: . Insight: . Orientation: . Recent and remote memory: . Attention span and concentration: . Fund of knowledge: . Mood: "." Affect: . DIAGNOSES: 1. . 2. . 3. . ASSESSMENT: PROBLEM LIST: 1. . 2. . 3. . INITIAL TREATMENT PLAN: 1. Patient was admitted on a . 2. Complete history was obtained. 3. With patients permission, family will be contacted and database will be expanded. 4. Patients medication regimen will be reviewed and changed accordingly. 5. Patient will be provided with protected environment. 6. Patient will be treated with individual, group, and milieu therapies. 7. Patient will receive supportive psych-education. 8. Discharge planning will commence immediately. 9. Outpatient follow-up treatment will be strongly recommended. 10. The initial treatment plan will focus initially on: * Depression. * Risk for suicide. * Substance abuse. ESTIMATED LENGTH OF STAY: - DAYS. TIME SPENT COUNSELING AND COORDINATING INITIAL CARE: minutes. Vital Signs Vital Signs Date Time Temp Pulse Resp B/P (MAP) Pulse Ox O2 Delivery O2 Flow Rate FiO2 03/04/20 06:35 99.1 68 18 136/68 (90) 99 Room Air Laboratory Data 24H Labs Laboratory Tests 2 03/03/20 10:03: Nucleated Red Blood Cells % (auto) 0.0, Anion Gap 5L, Glomerular Filtration Rate > 60.0, Calcium Level 8.6, Total Bilirubin 0.7, Direct Bilirubin 0.2, Aspartate Amino Transf (AST/SGOT) 14, Alanine Aminotransferase (ALT/SGPT) 26, Alkaline Phosphatase 95, Total Protein 7.3, Albumin 3.7, Albumin/Globulin Ratio 1.0L, Thyroid Stimulating Hormone (TSH) 0.396, Human Chorionic Gonadotropin, Qual NEGATIVE, Salicylates Level < 1.7L, Urine Opiates Screen NEGATIVE, Urine Methadone Screen NEGATIVE, Acetaminophen Level < 2.0L, Urine Barbiturates Screen NEGATIVE, Urine Phencyclidine Screen NEGATIVE, Urine Amphetamines Screen POSITIVEH, Urine Benzodiazepines Screen NEGATIVE, Urine Cocaine Metabolite Screen NEGATIVE, Urine Cannabinoids Screen NEGATIVE, Ethyl Alcohol Level < 0.003 CBC/BMP Laboratory Tests 03/03/20 10:03 Medications Scheduled Calcium Citrate/Magnesium/D3 (Calcium Citrate Chewable Wafer) 1 Each Wafer, 2 WAF PO BID, (Reported) Doxepin HCl (Doxepin HCl) 25 Mg Capsule, 50 MG PO QHS, (Reported) Ergocalciferol (Vitamin D2) (Vitamin D2) 50,000 Units Cap, 50,000 UNITS PO QWEEK, (Reported) FRIDAYS Glucosamine Sulfate Dipot Chlr (Glucosamine) 1,000 Mg Tablet, 1,000 MG PO DAILY, (Reported) Lactobacillus Acidophilus (Probiotic) 1 Each Capsule, 1 CAP PO DAILY, (Reported) Lisdexamfetamine Dimesylate (Vyvanse) 40 Mg Capsule, 40 MG PO DAILY, (Reported) Metformin HCl (Metformin HCl) 500 Mg Tablet, 500 MG PO BID, (Reported) PATIENT STATES SHE HAS NOT BEEN TAKING, BUT NEEDS TO BEGIN TAKING AGAIN. Scheduled PRN Hydroxyzine HCl (Hydroxyzine HCl) 50 Mg Tablet, 50 MG PO TID PRN for ANXIETY, (Reported) Pantoprazole Sodium (Pantoprazole Sodium) 40 Mg Tablet.dr, 40 MG PO DAILY PRN for HEARTBURN, (Reported) Allergies Coded Allergies: [employer] (Verified Allergy, Severe, anaphylaxis, 07/02/19) latex (Verified Allergy, Severe, hives/throat & tongue swellimg, 07/02/19) tree nut (Verified Allergy, Severe, anaphylaxis, 07/02/19) watermelon (Verified Allergy, Severe, anaphylaxis, 07/02/19) erythromycin base (Verified Adverse Reaction, Mild, gi upset, 07/02/19) Initial Treatment Plan 1. Patient was admitted on a [9.39] status. 2. Complete history was obtained. 3. With patients permission, family will be contacted and database will be ex panded. 4. Patients medication regimen will be reviewed and changed accordingly. 5. Patient will be provided with protected environment. 6. Patient will be treated with individual, group, and milieu therapies. 7. Patient will receive supportive psych-education. 8. Discharge planning will commence immediately. 9. Outpatient follow-up treatment will be strongly recommended. 10. The initial treatment plan will focus initially on: * Depression. * Risk for suicide. ESTIMATED LENGTH OF STAY: - DAYS. TIME SPENT COUNSELING AND COORDINATING INITIAL CARE: minutes. Vital Signs Vital Signs Date Time Temp Pulse Resp B/P (MAP) Pulse Ox O2 Delivery O2 Flow Rate FiO2 03/04/20 06:35 99.1 68 18 136/68 (90) 99 Room Air Laboratory Data 24H Labs Laboratory Tests 2 03/03/20 10:03: Nucleated Red Blood Cells % (auto) 0.0, Anion Gap 5L, Glomerular Filtration Rate > 60.0, Calcium Level 8.6, Total Bilirubin 0.7, Direct Bilirubin 0.2, Aspartate Amino Transf (AST/SGOT) 14, Alanine Aminotransferase (ALT/SGPT) 26, Alkaline Phosphatase 95, Total Protein 7.3, Albumin 3.7, Albumin/Globulin Ratio 1.0L, Thy roid Stimulating Hormone (TSH) 0.396, Human Chorionic Gonadotropin, Qual NEGATIVE, Salicylates Level < 1.7L, Urine Opiates Screen NEGATIVE, Urine Methadone Screen NEGATIVE, Acetaminophen Level < 2.0L, Urine Barbiturates Screen NEGATIVE, Urine Phencyclidine Screen NEGATIVE, Urine Amphetamines Screen POSITIVEH, Urine Benzodiazepines Screen NEGATIVE, Urine Cocaine Metabolite Screen NEGATIVE, Urine Cannabinoids Screen NEGATIVE, Ethyl Alcohol Level < 0.003 CBC/BMP Laboratory Tests 03/03/20 10:03 DARBY HERNANDEZ DO Mar 04, 2020 09:29
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
--- NOTE | 2020-03-04 15:56 | HPEPDOC ---
[facility] Medical History & Physical Date of Admission Mar 03, 2020 Date of Service: Mar 04, 2020 History and Physical CHIEF COMPLAINT: Medical H&P for [facility] HISTORY OF PRESENT ILLNESS: 44 yo female admitted to [facility] for suicidal ideation. Medical history includes previous diagnosis of Lupus, which was later found to be negative. 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 REVIEW OF SYSTEMS: Negative except as per HPI. HOME MEDICATIONS: Please see below. PHYSICAL EXAMINATION: VITAL SIGNS: See below General: NAD, lying comfortably in bed HEENT: NC/AT, EOMI Lungs: CTA B/L Heart: +S1S2, RRR Abd: soft, NT, +BS Ext: no edema LABORATORY DATA: See below. MICROBIOLOGY: Please see below. ASSESSMENT: 44 yo female with extensive chronic PMHx admitted to [facility] for suicidal ideation. 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 OFFICER DR GUZMAN.IN [facility] #MIXED CONNECTIVE TISSUE DISEASE - outpatient follow up Vital Signs Vital Signs Date Time Temp Pulse Resp B/P (MAP) Pulse Ox O2 Delivery O2 Flow Rate FiO2 03/04/20 06:35 99.1 68 18 136/68 (90) 99 Room Air Home Medications Scheduled Calcium Citrate/Magnesium/D3 (Calcium Citrate Chewable Wafer) 1 Each Wafer, 2 WAF PO BID Doxepin HCl (Doxepin HCl) 25 Mg Capsule, 50 MG PO QHS Ergocalciferol (Vitamin D2) (Vitamin D2) 50,000 Units Cap, 50,000 UNITS PO QWEEK FRIDAYS Glucosamine Sulfate Dipot Chlr (Glucosamine) 1,000 Mg Tablet, 1,000 MG PO DAILY Lactobacillus Acidophilus (Probiotic) 1 Each Capsule, 1 CAP PO DAILY Lisdexamfetamine Dimesylate (Vyvanse) 40 Mg Capsule, 40 MG PO DAILY Metformin HCl (Metformin HCl) 500 Mg Tablet, 500 MG PO BID PATIENT STATES SHE HAS NOT BEEN TAKING, BUT NEEDS TO BEGIN TAKING AGAIN. Scheduled PRN Hydroxyzine HCl (Hydroxyzine HCl) 50 Mg Tablet, 50 MG PO TID PRN for ANXIETY Pantoprazole Sodium (Pantoprazole Sodium) 40 Mg Tablet.dr, 40 MG PO DAILY PRN for HEARTBURN Allergies Coded Allergies: [place] (Verified Allergy, Severe, anaphylaxis, 07/02/19) latex (Verified Allergy, Severe, hives/throat & tongue swellimg, 07/02/19) tree nut (Verified Allergy, Severe, anaphylaxis, 07/02/19) watermelon (Verified Allergy, Severe, anaphylaxis, 07/02/19) erythromycin base (Verified Adverse Reaction, Mild, gi upset, 07/02/19) A-FIB/CHADSVASC A-FIB History Current/History of A-Fib/PAF?: No OLIVER TRIVEDI MD Mar 04, 2020 14:03
[2020-03-04 17:26] VITALS: BP 112/64
[2020-03-04] MEDS: DOXEPIN 25 MG CAP PO SCH (20:59)
[2020-03-05 06:10] VITALS: BP 128/70
[2020-03-05] MEDS: metFORMIN (GLUCOPHAGE) 500 MG TAB PO SCH (08:15)
[2020-03-05] MEDS: CALCIUM/VITAMIN D 500 MG TAB PO SCH (08:15)
[2020-03-05] MEDS: LACTOBACILLUS ACIDOPHILUS CAP (BACID) PO SCH (08:15)
[2020-03-05] MEDS ORDERED: VITAMIN D 50,000 UNITS CAPSULE (ERGOCALCIFEROL 1.25MG) PO SCH (09:00)
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
== END 2020-03-05 15:10 | disposition home or self-care (01) | DRG 882 ==
LOC: M ED 09:18 → M ED INP 15:02 → M PSY 17:40
PROVIDERS: ADMIT Psychiatry & Neurology Addiction Medicine; ATTEND Psychiatry & Neurology Addiction Medicine
DX: F43.9 Reaction to severe stress, unspecified (principal); R45.851 Suicidal ideations; L73.2 Hidradenitis suppurativa; M51.36 Other intervertebral disc degeneration, lumbar region; M35.9 Systemic involvement of connective tissue, unspecified; J30.2 Other seasonal allergic rhinitis; F90.9 Attention-deficit hyperactivity disorder, unspecified type; Z87.442 Personal history of urinary calculi; Z79.84 Long term (current) use of oral hypoglycemic drugs; Z79.899 Other long term (current) drug therapy; Z88.1 Allergy status to other antibiotic agents; Z91.018 Allergy to other foods; Z91.040 Latex allergy status; Z91.410 Personal history of adult physical and sexual abuse

== ENCOUNTER 2020-03-14 05:35 | Emergency (ER) | payer OTHER ==
[~2020-03-14] VITALS: Ht 160 cm; Wt 90.9 kg
[~2020-03-14 05:35] MED LIST changes: +CALC1WAF2 PO; +DOXE25CA PO; +GNP1000T11 PO; +METF500T13 PO; +PANT-23 PO; +PANT40TA29 PO; -PANT40TA3 PO; +PROBCAP14 PO; +VITA50005 PO
[2020-03-14] MEDS ORDERED: NS 1,000 ML IV ONE (06:15)
[2020-03-14] MEDS ORDERED: ONDANSETRON 4MG/2ML VIAL IV ONE (06:45)
[2020-03-14] MEDS ORDERED: KETOROLAC 30 MG/ML 1ML VIAL IV ONE (06:45)
[2020-03-14 06:53] LABS: BASO % 0.7 % (0.0-1.0); EOS # 0.2 10^3/uL (0.0-0.5); EOS % 2.6 % (0.0-3.0); HEMATOCRIT 45.1 % (36.0-47.0); LYMPH # 2.4 10^3/uL (1.5-5.0); MEAN CORPUSCULAR HEMOGLOBIN 28.9 pg (27.0-33.0); MEAN CORPUSCULAR HGB CONC 33.3 g/dl (32.0-36.5); MEAN CORPUSCULAR VOLUME 86.9 fl (80.0-96.0); MONO # 0.4 10^3/uL (0.0-0.8); MONO % 6.5 % (0.0-5.0); NEUTROPHILS # 2.9 10^3/uL (1.5-8.5); NEUTROPHILS % 48.9 % (36.0-66.0); PLATELET COUNT, AUTOMATED 278 10^3/uL (150-450); RED BLOOD COUNT 5.19 10^6/uL (4.00-5.40); WHITE BLOOD COUNT 5.8 10^3/uL (4.0-10.0)
[2020-03-14 06:54] LABS: ALBUMIN 3.8 GM/DL (3.2-5.2); ALT/SGPT 30 U/L (12-78); BILIRUBIN,DIRECT 0.1 MG/DL (0.0-0.2); BILIRUBIN,TOTAL 0.3 MG/DL (0.2-1.0); BLOOD UREA NITROGEN 13 MG/DL (7-18); CALCIUM LEVEL 8.9 MG/DL (8.5-10.1); CARBON DIOXIDE LEVEL 28 MEQ/L (21-32); CHLORIDE LEVEL 107 MEQ/L (98-107); CREATININE FOR GFR 0.92 MG/DL (0.55-1.30); GLOMERULAR FILTRATION RATE > 60.0 (>58); GLUCOSE, FASTING 108 MG/DL (70-100); LIPASE 214 U/L (73-393); POTASSIUM SERUM 3.5 MEQ/L (3.5-5.1); SODIUM LEVEL 139 MEQ/L (136-145); TOTAL PROTEIN 8.2 GM/DL (6.4-8.2)
--- NOTE | 2020-03-14 07:24 | REPVR ---
PROCEDURE INFORMATION: Exam: CT Abdomen And Pelvis Without Contrast Exam date and time: 03/14/2020 6:51 AM Age: 44 years old Clinical indication: Abdominal pain; Flank; Left; Additional info: L flank pain, h/o kidney stones TECHNIQUE: Imaging protocol: Computed tomography of the abdomen and pelvis without contrast. Radiation optimization: All CT scans at this facility use at least one of these dose optimization techniques: automated exposure control; mA and/or kV adjustment per patient size (includes targeted exams where dose is matched to clinical indication); or iterative reconstruction. COMPARISON: CT ABD PELVIS W/O CONTRAST 02/02/2019 1:49 AM FINDINGS: Liver: Mild hepatomegaly. Gallbladder and bile ducts: Status post cholecystectomy. Pancreas: Normal. No ductal dilation. Spleen: Normal. No splenomegaly. Adrenals: Normal. No mass. Kidneys and ureters: Mild left hydroureteronephrosis to the level of a 3-4 mm calculus in the proximal to mid left ureter. Bilateral nonobstructive nephrolithiasis. Stomach and bowel: Unremarkable. No obstruction. No mucosal thickening. Appendix: No evidence of appendicitis. Intraperitoneal space: Unremarkable. No free air. No significant fluid collection. Vasculature: Unremarkable. No abdominal aortic aneurysm. Lymph nodes: Unremarkable. No enlarged lymph nodes. Bladder: Unremarkable as visualized. Reproductive: Status post hysterectomy. Bones/joints: Facet hypertrophy in the lower lumbar spine. Soft tissues: Unremarkable. IMPRESSION: Mild left hydroureteronephrosis to the level of a 3-4 mm calculus in the proximal to mid left ureter. Electronically signed by: Jass Diaz On 03/14/2020 07:24:11 AM
[2020-03-14] MEDS ORDERED: FLOM0.4C39 PO (08:03)
[2020-03-14] MEDS ORDERED: IBUP80TA PO (08:15)
[2020-03-14 08:24] VITALS: BP 116/59
== END 2020-03-14 08:28 | disposition home or self-care (01) ==
LOC: M ED 05:35
DX: N20.1 Calculus of ureter (principal); N13.39 Other hydronephrosis; Z87.442 Personal history of urinary calculi; K21.9 Gastro-esophageal reflux disease without esophagitis; I10 Essential (primary) hypertension; F41.9 Anxiety disorder, unspecified; F32.9 Major depressive disorder, single episode, unspecified; Z87.42 Personal history of other diseases of the female genital tract; M35.8 Other specified systemic involvement of connective tissue; F90.9 Attention-deficit hyperactivity disorder, unspecified type; Z88.1 Allergy status to other antibiotic agents; Z91.018 Allergy to other foods; Z91.040 Latex allergy status; Z79.899 Other long term (current) drug therapy
CPT/HCPCS: 74176; 80047; 80048; 80076; 81001; 83690; 84702; 85025; 96361; 96374; 96375; 99284; J1885; J2405

== ENCOUNTER 2020-06-07 15:22 | Emergency (ER) | payer OTHER ==
[~2020-06-07] VITALS: Ht 160 cm; Wt 92.1 kg
[2020-06-07] MEDS ORDERED: ONDANSETRON 4MG/2ML VIAL IV ONE ×2 (15:30→16:30)
[2020-06-07] MEDS ORDERED: KETOROLAC 30 MG/ML 1ML VIAL IV ONE (15:30)
[2020-06-07 16:05] LABS: BASO % 0.4 % (0.0-1.0); EOS # 0.1 10^3/uL (0.0-0.5); EOS % 1.2 % (0.0-3.0); HEMATOCRIT 46.7 % (36.0-47.0); HEMOGLOBIN 15.8 g/dl (12.0-15.5); LYMPH # 2.6 10^3/uL (1.5-5.0); LYMPH % 31.4 % (24.0-44.0); MEAN CORPUSCULAR HEMOGLOBIN 29.2 pg (27.0-33.0); MEAN CORPUSCULAR HGB CONC 33.8 g/dl (32.0-36.5); MEAN CORPUSCULAR VOLUME 86.2 fl (80.0-96.0); MONO # 0.4 10^3/uL (0.0-0.8); MONO % 4.9 % (0.0-5.0); NEUTROPHILS # 5.2 10^3/uL (1.5-8.5); NEUTROPHILS % 61.6 % (36.0-66.0); PLATELET COUNT, AUTOMATED 321 10^3/uL (150-450); RED BLOOD COUNT 5.42 10^6/uL (4.00-5.40); WHITE BLOOD COUNT 8.4 10^3/uL (4.0-10.0)
[2020-06-07 16:30] LABS: ALBUMIN 3.7 GM/DL (3.2-5.2); BILIRUBIN,DIRECT 0.1 MG/DL (0.0-0.2); BILIRUBIN,TOTAL 0.4 MG/DL (0.2-1.0); TOTAL PROTEIN 7.8 GM/DL (6.4-8.2)
[2020-06-07] MEDS ORDERED: NS 1,000 ML IV ONE (16:30)
[2020-06-07] MEDS ORDERED: MORPHINE 4 MG/ML 1ML VIAL/SYRINGE (J2270) IV ONE (16:30)
--- NOTE | 2020-06-07 17:07 | REPVR ---
PROCEDURE INFORMATION: Exam: CT Abdomen And Pelvis Without Contrast Exam date and time: 06/07/2020 4:33 PM Age: 44 years old Clinical indication: Abdominal pain; Flank; Right; Additional info: R flank pain, HX stones TECHNIQUE: Imaging protocol: Computed tomography of the abdomen and pelvis without contrast. Radiation optimization: All CT scans at this facility use at least one of these dose optimization techniques: automated exposure control; mA and/or kV adjustment per patient size (includes targeted exams where dose is matched to clinical indication); or iterative reconstruction. COMPARISON: CT ABD PELVIS W/O CONTRAST 03/14/2020 6:46 AM FINDINGS: Liver: 5 mm cyst segment 2 left lobe of the liver. Liver otherwise unremarkable. Gallbladder and bile ducts: There has been a cholecystectomy. Pancreas: Normal. No ductal dilation. Spleen: Normal. No splenomegaly. Adrenals: Normal. No mass. Kidneys and ureters: Bilateral nonobstructive renal calculi. There is a 4 mm. obstructive ureteral calculus located distal right ureter resulting in mild to moderate proximal hydroureteronephrosis. There is no significant periureteral and perinephric stranding. No urinoma demonstrated. Redemonstration of a 4mm obstructive ureteral calculus in the proximal left ureter which is not changed significantly in position in comparison to the prior study. There is mild proximal hydroureteronephrosis. No urinoma demonstrated. Stomach and bowel: Unremarkable. No obstruction. No mucosal thickening. Appendix: No evidence of appendicitis. Intraperitoneal space: Unremarkable. No free air. No significant fluid collection. Vasculature: Unremarkable. No abdominal aortic aneurysm. Lymph nodes: Unremarkable. No enlarged lymph nodes. Bladder: Unremarkable as visualized. Reproductive: There has been a hysterectomy. Bones/joints: Facet joint arthropathy flow ir lumbar spine. Soft tissues: Unremarkable. IMPRESSION: 1. There has been a cholecystectomy. 2. Bilateral nonobstructive renal calculi. 3. There is a 4 mm. obstructive ureteral calculus located distal right ureter resulting in mild to moderate proximal hydroureteronephrosis. There is no significant periureteral and perinephric stranding. No urinoma demonstrated. 4. Redemonstration of a 4mm obstructive ureteral calculus in the proximal left ureter which is not changed significantly in position in comparison to the prior study. There is mild proximal hydroureteronephrosis. No urinoma demonstrated. 5. There has been a hysterectomy. Electronically signed by: lAphonso Valdes On 06/07/2020 17:06:48 PM
[2020-06-07] MEDS ORDERED: ONDA4TAB6 PO (18:16)
[2020-06-07] MEDS ORDERED: NORC1TAB7 PO (18:16)
[2020-06-07] MEDS ORDERED: NORCO 5/325MG TABLET (BULK FOR ED) PO ONE (18:30)
[2020-06-07 18:35] VITALS: BP 138/75
== END 2020-06-07 18:37 | disposition home or self-care (01) ==
LOC: M ED 15:22
DX: N13.2 Hydronephrosis with renal and ureteral calculous obstruction (principal); K76.89 Other specified diseases of liver; Z90.49 Acquired absence of other specified parts of digestive tract; Z90.710 Acquired absence of both cervix and uterus; Z79.899 Other long term (current) drug therapy; Z88.8 Allergy status to other drugs, medicaments and biological substances; Z91.018 Allergy to other foods
CPT/HCPCS: 74176; 80047; 80076; 81001; 83690; 85025; 96361; 96374; 96375; 96376; 99284; J1885; J2270; J2405

== ENCOUNTER → 2020-06-23 | Outpatient (CLI) | payer OTHER ==
[~2020-06-23] MED LIST changes: +NORC1TAB7 PO; +ONDA4TAB6 PO
[2020-06-23 18:42] LABS: APPEARANCE, URINE CLEAR (CLEAR); BACTERIA, URINE AUTO NEGATIVE (NEGATIVE); BILIRUBIN, URINE AUTO NEGATIVE (NEGATIVE); BLOOD, URINE BLOOD 2+ (NEGATIVE); COLOR, URINE STRAW (YELLOW); GLUCOSE, URINE (UA) AUTO NEGATIVE (NEGATIVE); KETONE, URINE AUTO NEGATIVE (NEGATIVE); LEUKOCYTE ESTERASE, URINE AUTO NEGATIVE (NEGATIVE); MUCUS, URINE SMALL (NEGATIVE); NITRITE, URINE AUTO NEGATIVE (NEGATIVE); PROTEIN, URINE AUTO NEGATIVE (NEGATIVE); RBC, URINE AUTO 6 /HPF (0-3); SPECIFIC GRAVITY URINE AUTO 1.016 (1.002-1.035); SQUAMOUS EPITHELIAL CELL UR AU 0 /HPF (0-6); UROBILINOGEN, URINE AUTO 0.2 mg/dL (0.0-2.0); WBC, URINE AUTO 1 /HPF (0-3)
--- NOTE | 2020-07-01 12:41 | REPPI ---
ABDOMINAL RADIOGRAPH CLINICAL: Kidney stones. TECHNIQUE: Single supine view of the abdomen and pelvis. FINDINGS: Nonobstructing intrarenal calculi are suggested measuring approximately 3 mm in the right kidney and 5 mm in the left kidney. Further evaluation of the urinary tract system is limited due to overlying bowel gas and technique. Mild/moderate fecal stasis suggested. Skeletal structures are intact. IMPRESSION: Bilateral nephrolithiasis suggested. MTDD
[2020-07-05 14:07] LABS: CA Oxalate Dihy 30 % (.); Ca Ox Monohydrate 70 % (.); Size 3x3 mm (.)
== END ==
LOC: M PLAIMG 14:21
PROVIDERS: ATTEND Nurse Practitioner Family
DX: N20.0 Calculus of kidney (principal)
CPT/HCPCS: 74018; 81000; 81001; 82365; 87086; G0463

== ENCOUNTER → 2020-10-07 | Outpatient (REF) | payer OTHER | LOC: M LAB REF 16:56 | PROVIDERS: ATTEND Physician Assistant | DX: L73.2 Hidradenitis suppurativa (principal) | CPT/HCPCS: 11900; 87070; G0463; J3301 ==

== ENCOUNTER → 2020-11-02 | Outpatient (REF) | payer OTHER | LOC: M LAB REF 13:54 | PROVIDERS: ATTEND Dermatology | DX: D49.2 Neoplasm of unspecified behavior of bone, soft tissue, and skin (principal) ==

== ENCOUNTER → 2020-12-24 | Outpatient (CLI) | payer OTHER ==
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
== END ==
LOC: M CLY 15:39
PROVIDERS: ATTEND Physician Assistant
DX: S69.92XA Unspecified injury of left wrist, hand and finger(s), initial encounter (principal); X58.XXXA Exposure to other specified factors, initial encounter; Y92.9 Unspecified place or not applicable

== ENCOUNTER → 2021-01-31 | Outpatient (CLI) | payer OTHER ==
--- NOTE | 2021-01-31 23:01 | REP ---
INDICATION: CALCULUS OF KIDNEY COMPARISON: 06/07/2020 TECHNIQUE: Axial noncontrast images from the lung bases to the pubic symphysis with coronal and sagittal reformations. This CT examination was performed using the following dose reduction techniques: Automated exposure control, adjustment of mA and/or kv according to the patient's size, and use of iterative reconstruction technique. FINDINGS: Right kidney includes multiple calculi up to 4 mm. Left kidney demonstrates multiple calculi up to 9 mm. No perinephric stranding, hydroureteronephrosis, or obstructing ureteral calculi. Liver, spleen, pancreas, and bilateral adrenal glands are normal. Evidence for prior cholecystectomy. The enteric system is without obstruction or acute inflammatory process. Normal terminal ileum and cecum identified in the right lower quadrant. Scattered sigmoid diverticula noted without acute diverticulitis. Pelvis demonstrates normal bladder and evidence for prior hysterectomy. No ascites. No free air. No adenopathy. Abdominal aorta without aneurysm. Musculoskeletal structures demonstrate age-related changes with advanced degenerative changes of the lower lumbosacral spine. IMPRESSION: Bilateral nephrolithiasis without obstructing ureteral calculi. Evidence for prior cholecystectomy and hysterectomy. <Electronically signed by Diego Hankins > 01/31/21 [id number]
== END ==
LOC: M RAD 16:08
PROVIDERS: ATTEND Nurse Practitioner Family
DX: N20.0 Calculus of kidney (principal)

== ENCOUNTER → 2021-02-08 | Outpatient (CLI) | payer OTHER ==
--- NOTE | 2021-02-08 09:54 | REP ---
INDICATION: N20.0, CALCULUS OF KIDNEY COMPARISON: 06/23/2020 TECHNIQUE: Supine view of the abdomen and pelvis. FINDINGS: Bilateral nonobstructing renal calculi are appreciated measuring up to roughly 3 mm in the upper pole right kidney and 5 mm midpole left kidney. Bowel gas pattern is nonspecific. No organomegaly. No foreign body. Skeletal structures grossly intact. IMPRESSION: Bilateral nephrolithiasis. <Electronically signed by Diego Hankins > 02/08/21 [id number]
== END ==
LOC: M CLY 09:30
PROVIDERS: ATTEND Nurse Practitioner Family
DX: N20.0 Calculus of kidney (principal)

== ENCOUNTER → 2021-02-08 | Outpatient (REF) | payer OTHER ==
[2021-02-08 13:52] LABS: APPEARANCE, URINE HAZY (CLEAR); BACTERIA, URINE AUTO NEGATIVE (NEGATIVE); BILIRUBIN, URINE AUTO NEGATIVE (NEGATIVE); BLOOD, URINE BLOOD 2+ (NEGATIVE); COLOR, URINE YELLOW (YELLOW); GLUCOSE, URINE (UA) AUTO NEGATIVE (NEGATIVE); KETONE, URINE AUTO NEGATIVE (NEGATIVE); LEUKOCYTE ESTERASE, URINE AUTO NEGATIVE (NEGATIVE); MUCUS, URINE SMALL (NEGATIVE); NITRITE, URINE AUTO NEGATIVE (NEGATIVE); PROTEIN, URINE AUTO NEGATIVE (NEGATIVE); RBC, URINE AUTO 30 /HPF (0-3); SPECIFIC GRAVITY URINE AUTO 1.018 (1.002-1.035); SQUAMOUS EPITHELIAL CELL UR AU 3 /HPF (0-6); UROBILINOGEN, URINE AUTO 0.2 mg/dL (0.0-2.0); WBC, URINE AUTO 1 /HPF (0-3)
== END ==
LOC: M SMT 12:40
PROVIDERS: ATTEND Nurse Practitioner Family
DX: N20.0 Calculus of kidney (principal)

== ENCOUNTER → 2021-02-16 | Outpatient (REF) | payer OTHER ==
[2021-02-16 16:11] LABS: APPEARANCE, URINE CLEAR (CLEAR); BACTERIA, URINE AUTO NEGATIVE (NEGATIVE); BILIRUBIN, URINE AUTO NEGATIVE (NEGATIVE); BLOOD, URINE BLOOD 1+ (NEGATIVE); COLOR, URINE COLORLESS (YELLOW); GLUCOSE, URINE (UA) AUTO NEGATIVE (NEGATIVE); KETONE, URINE AUTO NEGATIVE (NEGATIVE); LEUKOCYTE ESTERASE, URINE AUTO NEGATIVE (NEGATIVE); NITRITE, URINE AUTO NEGATIVE (NEGATIVE); PROTEIN, URINE AUTO NEGATIVE (NEGATIVE); RBC, URINE AUTO 1 /HPF (0-3); SPECIFIC GRAVITY URINE AUTO 1.003 (1.002-1.035); SQUAMOUS EPITHELIAL CELL UR AU 1 /HPF (0-6); UROBILINOGEN, URINE AUTO 0.2 mg/dL (0.0-2.0); WBC, URINE AUTO 0 /HPF (0-3)
== END ==
LOC: M SFHCCAPE 10:01
PROVIDERS: ATTEND Nurse Practitioner Family
DX: N20.0 Calculus of kidney (principal)

== ENCOUNTER → 2021-03-26 | Outpatient (CLI) | payer OTHER ==
[~2021-03-26] MED LIST changes: +ERGO500029 PO; -ETOD500T PO; +ETOD500T4 PO; +MIRT1TAB PO; +OXYC1TAB23 PO; +PROB250C PO; +SPIR100T3 PO; -VITA50005 PO; +VYVA50CA4 PO
== END ==
LOC: M LABSMTC 10:03
PROVIDERS: ATTEND Anesthesiology
DX: Z01.818 Encounter for other preprocedural examination (principal); Z11.52 Encounter for screening for COVID-19

== ENCOUNTER → 2021-03-28 | Outpatient (CLI) | payer OTHER ==
--- NOTE | 2021-03-28 19:01 | ECGEPIP ---
[facility] Test Date: 2021-03-28 Pat Name: KARLY LEDEZMA Department: Room: - Gender: Female Client Technical Support Associate: RF : [id number] Requested By: ANITA Lemos Order Number: [id number] Reading MD: Vince Rosario Measurements Intervals Mcgrath Rate: 78 P: 2 GA: 156 QRS: 29 QRSD: 90 T: 19 QT: 404 QTc: 460 Interpretive Statements Normal sinus rhythm normal Slower rate but otherwise unchanged from 09/12/19 Electronically Signed on 03-28-2021 19:00:49 EDT by Vince Rosario
== END ==
LOC: M EKG 11:42
PROVIDERS: ATTEND Urology
DX: I10 Essential (primary) hypertension (principal)

== ENCOUNTER → 2021-03-29 | Outpatient (REF) | payer OTHER ==
[2021-03-29 11:34] LABS: HEMATOCRIT 46.1 % (36.0-47.0); HEMOGLOBIN 15.3 g/dl (12.0-15.5); MEAN CORPUSCULAR HEMOGLOBIN 28.8 pg (27.0-33.0); MEAN CORPUSCULAR HGB CONC 33.2 g/dl (32.0-36.5); MEAN CORPUSCULAR VOLUME 86.7 fl (80.0-96.0); PLATELET COUNT, AUTOMATED 304 10^3/uL (150-450); RED BLOOD COUNT 5.32 10^6/uL (4.00-5.40); WHITE BLOOD COUNT 6.6 10^3/uL (4.0-10.0)
[2021-03-29 11:45] LABS: INR 0.93; PROTHROMBIN TIME 12.7 SECONDS (12.5-14.3)
[2021-03-29 11:46] LABS: PARTIAL THROMBOPLASTIN TIME 29.4 SECONDS (24.2-38.5)
[2021-03-29 11:59] LABS: BLOOD UREA NITROGEN 11 MG/DL (7-18); CALCIUM LEVEL 8.8 MG/DL (8.5-10.1); CARBON DIOXIDE LEVEL 29 MEQ/L (21-32); CHLORIDE LEVEL 105 MEQ/L (98-107); CREATININE FOR GFR 0.77 MG/DL (0.55-1.30); GLOMERULAR FILTRATION RATE > 60.0 (>58); GLUCOSE, FASTING 112 MG/DL (70-100); POTASSIUM SERUM 4.4 MEQ/L (3.5-5.1); SODIUM LEVEL 138 MEQ/L (136-145)
== END ==
LOC: M LABSMT 08:50
PROVIDERS: ATTEND Nurse Practitioner Family
DX: Z01.818 Encounter for other preprocedural examination (principal); N20.0 Calculus of kidney

== ENCOUNTER 2021-03-31 05:59 | Day surgery (SDC) | payer OTHER ==
[~2021-03-31] VITALS: Ht 160 cm; Wt 94.7 kg
[2021-03-31] MEDS ORDERED: LR 1,000 ML IV ONE (06:00)
[2021-03-31] MEDS ORDERED: ceFAZolin SOD 2 GM in IV 1 EA IV ONE (06:00)
[2021-03-31] MEDS ORDERED: LIDOCAINE 2% 100MG/5ML SDV (FOR ANES.) As Ordered ONE (07:17)
[2021-03-31] MEDS ORDERED: propofoL 200 MG/20 ML VIAL As Ordered ONE (07:17)
[2021-03-31] MEDS ORDERED: MIDAZOLAM INJ 2MG/2ML VIAL (J2250 PER 1MG) As Ordered ONE (07:18)
[2021-03-31] MEDS ORDERED: fentaNYL 100 MCG/2 ML INJECTION (J3010) As Ordered ONE (07:18)
--- NOTE | 2021-03-31 08:14 | REP ---
INDICATION: KIDNEY STONE KUB BEFORE SDC COMPARISON: 02/08/2021 TECHNIQUE: Supine view of the abdomen and pelvis. FINDINGS: Bilateral nonobstructing nephroliths are again noted and unchanged. Calculi in the right kidney measure up to approximately 3 mm, and calculi in the left kidney measure up to approximately 5 mm. Bowel gas pattern is nonspecific. Skeletal structures intact. IMPRESSION: Bilateral nephrolithiasis. <Electronically signed by Diego Hankins > 03/31/21 [id number]
--- NOTE | 2021-03-31 08:29 | RO ---
OPERATIVE NOTE DATE OF OPERATION: 03/31/2021 PREOPERATIVE DIAGNOSIS: Left kidney stone. POSTOPERATIVE DIAGNOSIS: Left kidney stone. PROCEDURE: Left extracorporal shock wave lithotripsy. SURGEON: Matt Blankenship MD. DURABILITY TECHNICIAN: None. ANESTHESIA: MAC. OPERATIVE INDICATIONS: This is a 45-year-old female with an approximate 8-9 mm nonobstructing left kidney stone who was brought to the operating room today for treatment. DESCRIPTION OF PROCEDURE: The patient was brought to the operating room and MAC anesthesia was administered. Prophylactic antibiotics were infused. She was then placed in the supine position in preparation for left-sided extracorporal shock wave lithotripsy. Fluoroscopy was utilized to monitor stone position and fragmentation throughout the procedure. Shock waves were then delivered to the left-sided kidney stone ungated. There were no arrhythmias. After 2500 shocks, the procedure was concluded. The patient was then awakened from anesthesia and then transported to the recovery room in stable condition. ESTIMATED BLOOD LOSS: 0 mL. COMPLICATIONS: None. SPECIMEN: None. PLAN: The patient will follow up in the urology clinic in a few weeks with imaging prior to assess for residual stone burden. If it looks like she still has a significant amount stone inside the left kidney, we might have to offer a left ureteroscopy with laser lithotripsy.
[2021-03-31] MEDS ORDERED: PERCOCET 5MG/325MG TAB PO PRN (09:05)
[2021-03-31 09:07] VITALS: BP 120/64
== END 2021-03-31 09:07 | disposition home or self-care (01) ==
LOC: M RAD 05:59 → M SDC 05:59
PROVIDERS: ATTEND Urology
DX: N20.0 Calculus of kidney (principal); I10 Essential (primary) hypertension; E28.2 Polycystic ovarian syndrome; K21.9 Gastro-esophageal reflux disease without esophagitis; M79.7 Fibromyalgia; M19.90 Unspecified osteoarthritis, unspecified site; F41.9 Anxiety disorder, unspecified; F32.9 Major depressive disorder, single episode, unspecified; F90.9 Attention-deficit hyperactivity disorder, unspecified type; R06.81 Apnea, not elsewhere classified; Z88.1 Allergy status to other antibiotic agents; Z91.018 Allergy to other foods; Z91.040 Latex allergy status; Z79.899 Other long term (current) drug therapy; Z79.84 Long term (current) use of oral hypoglycemic drugs; Z79.891 Long term (current) use of opiate analgesic
CPT/HCPCS: 50590; 74018; J0690; J2250; J3010

== ENCOUNTER → 2021-05-02 | Outpatient (CLI) | payer OTHER ==
--- NOTE | 2021-05-02 12:33 | REP ---
INDICATION: N20.0, CALCULUS OF KIDNEY. COMPARISON: [facility], 03/31/2021. TECHNIQUE: Supine AP view of the abdomen was performed. FINDINGS: There is a 4 mm in diameter calcific density projected over the interpolar region of the left kidney. There is a 4 mm in diameter calcific density projected over the lower pole of the left kidney. There is a 5 mm in diameter calcific density projected over the interpolar region of the right kidney. Multiple additional tiny calcific densities are projected over the upper pole of the right kidney. There are no calcific densities projected over the path of either ureter. The bowel gas pattern is normal. There are no significant bony abnormalities. IMPRESSION: Bilateral nephrolithiasis, not significantly changed. <Electronically signed by Ty Meza > 05/02/21 1902
== END ==
LOC: M CLY 11:20
PROVIDERS: ATTEND Nurse Practitioner Family
DX: N20.2 Calculus of kidney with calculus of ureter (principal)

== ENCOUNTER → 2021-05-02 | Outpatient (REF) | payer OTHER | LOC: M SMT 18:09 | PROVIDERS: ATTEND Nurse Practitioner Family | DX: N20.0 Calculus of kidney (principal) ==

== ENCOUNTER → 2021-05-10 | Outpatient (REF) | payer OTHER ==
[2021-05-10 16:17] LABS: BASO % 0.6 % (0.0-1.0); EOS # 0.1 10^3/uL (0.0-0.5); EOS % 1.4 % (0.0-3.0); HEMATOCRIT 45.6 % (36.0-47.0); HEMOGLOBIN 14.8 g/dl (12.0-15.5); LYMPH # 2.5 10^3/uL (1.5-5.0); LYMPH % 37.7 % (24.0-44.0); MEAN CORPUSCULAR HEMOGLOBIN 28.8 pg (27.0-33.0); MEAN CORPUSCULAR HGB CONC 32.5 g/dl (32.0-36.5); MEAN CORPUSCULAR VOLUME 88.7 fl (80.0-96.0); MONO # 0.4 10^3/uL (0.0-0.8); MONO % 5.5 % (2.0-8.0); NEUTROPHILS # 3.5 10^3/uL (1.5-8.5); NEUTROPHILS % 53.9 % (36.0-66.0); PLATELET COUNT, AUTOMATED 285 10^3/uL (150-450); RED BLOOD COUNT 5.14 10^6/uL (4.00-5.40); WHITE BLOOD COUNT 6.6 10^3/uL (4.0-10.0)
[2021-05-10 16:47] LABS: ALBUMIN 3.3 GM/DL (3.2-5.2); ALT/SGPT 28 U/L (12-78); BILIRUBIN,TOTAL 0.5 MG/DL (0.2-1.0); BLOOD UREA NITROGEN 12 MG/DL (7-18); CALCIUM LEVEL 8.5 MG/DL (8.5-10.1); CARBON DIOXIDE LEVEL 30 MEQ/L (21-32); CHLORIDE LEVEL 106 MEQ/L (98-107); CHOLESTEROL LEVEL 158 MG/DL (<200); CHOLESTEROL RISK RATIO 2.981 (<5); CREATININE FOR GFR 0.68 MG/DL (0.55-1.30); GLOMERULAR FILTRATION RATE > 60.0 (>58); GLUCOSE, FASTING 89 MG/DL (70-100); HDL CHOLESTEROL 53 MG/DL (>40); LDL CHOLESTEROL 62 MG/DL (<100); NON-HDL-C 105 MG/DL; POTASSIUM SERUM 4.1 MEQ/L (3.5-5.1); SODIUM LEVEL 142 MEQ/L (136-145); TOTAL PROTEIN 6.6 GM/DL (6.4-8.2); TRIGLYCERIDES LEVEL 215 MG/DL (<150)
[2021-05-10 16:48] LABS: TOTAL 25(OH) VITAMIN D 27.9 NG/ML (30.0-100.0)
[2021-05-10 17:03] LABS: HEMOGLOBIN A1c 5.2 %
== END ==
LOC: M SFHCCAPE 07:17
PROVIDERS: ATTEND Physician Assistant
DX: E55.9 Vitamin D deficiency, unspecified (principal); E78.1 Pure hyperglyceridemia; R73.09 Other abnormal glucose

== ENCOUNTER → 2021-07-14 | Outpatient (REF) | payer OTHER | LOC: M LAB REF 19:07 | PROVIDERS: ATTEND Dermatology | DX: L73.2 Hidradenitis suppurativa (principal) ==